=== PATIENT | male | born 1965 | race Caucasian/White ===

== ENCOUNTER 2017-07-11 07:44 | Day surgery (SDC) | payer BC ==
[2017-07-07 10:00] VITALS: BMI 33.9
[~2017-07-11 07:44] MED LIST: LACTATED RINGERS 1,000 ML IV SCH
[2017-07-11 08:10] VITALS: TEMP 97.6
[2017-07-11] MEDS ORDERED: LIDOCAINE 1% 20 ML VIAL (10MG/ML) FOR IV START INTRADERMA ONE (08:21)
[2017-07-11] MEDS ORDERED: LIDOCAINE 1% INJ 10MG/ML (20 ML MDV) ONE (08:56)
[2017-07-11] MEDS ORDERED: PROPOFOL 10 MG/ML 20 ML VIAL IV ONE (08:56)
--- NOTE | 2017-07-11 08:59 | P.GSHP ---
History of Present Illness H&P Date: 07/11/17 Chief Complaint: Screening colonoscopy This a 52-year-old male referred from Dr. Moncada. Patient presents today for screening colonoscopy. 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 ( 2010). SMOKED 2 PPD., SMOKED APPROX. 20 YRS . Past Drug Use History: None Reported - Past Family History Mother Family Medical History: Cancer Additional Family Medical History / Comment(s): FROM BREAST CANCER. Father Family Medical History: Cancer Additional Family Medical History / Comment(s): BLADDER CANCER Brother(s) Family Medical History: Cancer Additional Family Medical History / Comment(s): FROM CANCER. Medications and Allergies Home Medications Medication Instructions Recorded Confirmed Type Cholesterol Med 1 tab PO DAILY 07/07/17 07/11/17 History Lisinopril [Zestril] 10 mg PO DAILY 07/07/17 07/11/17 History Allergies Allergy/AdvReac Type Severity Reaction Status Date / Time bee venom protein (honey bee) Allergy Severe SEVERE Verified 07/11/17 08:03 SWELLING - HAS EPI PEN Surgical - Exam Vital Signs Temp Pulse Resp BP Pulse Ox 97.6 F 89 16 146/94 95 07/11/17 08:08 07/11/17 08:08 07/11/17 08:08 07/11/17 08:08 07/11/17 08:08 - General well developed, no distress - Eyes PERRL - ENT normal pinna - Neck no masses - Respiratory normal expansion - Cardiovascular Rhythm: regular - Abdomen Abdomen: soft, non tender Assessment and Plan Assessment: We'll perform screening colonoscopy.
--- NOTE | 2017-07-11 09:09 | P.OP ---
Date of Procedure: 07/11/17 Preoperative Diagnosis: Screening colonoscopy Postoperative Diagnosis: Normal colonoscopy Procedure(s) Performed: Colonoscopy Anesthesia: MAC Surgeon: Boris Patton Pathology: none sent Condition: stable Disposition: PACU Description of Procedure: N PROCEDURE: The patient was placed on the endoscopy table in the lateral position. Digital rectal examination was performed which revealed no abnormalities. The prostate was symmetrical without nodules. Flexible colonoscope was then placed in the patient's anus and passed throughout the entire colon. The ileocecal valve was visualized. The cecum, ascending, transverse, descending and sigmoid colon were normal. The rectum was normal as well. There were no masses, polyps or diverticula noted in the entire colon. SUMMARY OF FINDINGS: Normal colonoscopy.
[2017-07-11 09:22] VITALS: RESP 18
[2017-07-11 09:45] VITALS: BP 145/93; PULSE 73
== END 2017-07-11 09:50 | disposition home or self-care (01) ==
LOC: ORWHC2ENDO 07:44
PROVIDERS: ATTEND Surgery
DX: Z12.11 Encounter for screening for malignant neoplasm of colon (principal); E78.5 Hyperlipidemia, unspecified; I10 Essential (primary) hypertension; M19.90 Unspecified osteoarthritis, unspecified site; Z87.891 Personal history of nicotine dependence; Z79.899 Other long term (current) drug therapy; Z91.030 Bee allergy status
CPT/HCPCS: J2001; J2704; G0121

== ENCOUNTER 2018-05-24 09:52 | Inpatient (IN) | payer BC ==
[2018-05-24] MEDS ORDERED: DILTIAZEM DRIP BOLUS FROM BAG 1 MG SOLN IV ONE ×3 (10:20→16:57)
[2018-05-24] MEDS ORDERED: HEPARIN SODIUM,PORCINE 10,000 UNIT/ML 1 ML VIAL IV STA (10:20)
[2018-05-24] MEDS ORDERED: ASPIRIN 81 MG PO STA (10:20)
[2018-05-24] MEDS ORDERED: HEPARIN SOD,PORK IN 0.45% NACL 25,000 UNIT in 0.45% NACL 1 250ML.BAG IV SCH (10:30)
--- NOTE | 2018-05-24 10:43 | ED ---
Recheck HPI - General Chief Complaint: Recheck/Abnormal Lab/Rx Stated Complaint: abn EKG Time Seen by Provider: 05/24/18 10:00 Source: patient, RN notes reviewed Mode of arrival: ambulatory Limitations: no limitations - History of Present Illness Initial Comments: This is a 53-year-old male with a history of hyperlipidemia as well as hypertension no prior history of heart disease who was sent over from his doctor 's office for evaluation for appears be atrial fibrillation with rapid ventricular response. 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 He denies any palpitations chest pain fevers chills nausea vomiting sweats cough or other symptoms. He does notice today that his heart is beating faster. He denies any peripheral edema or overt weight gain. He states she's not been feeling his best for some period of time and he states his has noticed over the past 2 months that he does have exertional dyspnea when he doesn't even notice it. MD Complaint: other - Related Data Home Medications Medication Instructions Recorded Confirmed Lisinopril [Zestril] 10 mg PO DAILY 07/07/17 05/24/18 Atorvastatin Calcium [Lipitor] 40 mg PO QAM 05/24/18 05/24/18 Allergies Allergy/AdvReac Type Severity Reaction Status Date / Time bee venom protein (honey bee) Allergy Severe SEVERE Verified 05/24/18 10:38 SWELLING - HAS EPI PEN Review of Systems ROS Statement: Those systems with pertinent positive or pertinent negative responses have been documented in the HPI. ROS Other: All systems not noted in ROS Statement are negative. 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 Father Family Medical History: Cancer Additional Family Medical History / Comment(s): BLADDER CANCER Brother(s) Family Medical History: Cancer Additional Family Medical History / Comment(s): FROM CANCER. General Exam - General Exam Comments Initial Comments: This is a well-developed well-nourished awake alert oriented 3 male Limitations: no limitations General appearance: alert, anxious Head exam: Present: atraumatic, normocephalic, normal inspection Eye exam: Present: normal appearance, PERRL, EOMI. Absent: scleral icterus, conjunctival injection, periorbital swelling ENT exam: Present: normal exam, mucous membranes moist Neck exam: Present: normal inspection. Absent: tenderness, meningismus, lymphadenopathy Respiratory exam: Present: normal lung sounds bilaterally. Absent: respiratory distress, wheezes, rales, rhonchi, stridor Cardiovascular Exam: Present: tachycardia, irregular rhythm. Absent: systolic murmur, diastolic murmur, rubs, gallop, clicks GI/Abdominal exam: Present: soft, normal bowel sounds. Absent: distended, tenderness, guarding, rebound, rigid Extremities exam: Present: normal inspection, full ROM, normal capillary refill. Absent: tenderness, pedal edema, joint swelling, calf tenderness Back exam: Present: normal inspection Neurological exam: Present: alert, oriented X3, CN II-XII intact Psychiatric exam: Present: normal affect, normal mood Skin exam: Present: warm, dry, intact, normal color. Absent: rash Course Vital Signs 05/24/18 05/24/18 05/24/18 09:53 10:30 12:00 Temperature 97.5 F L Pulse Rate 94 161 H 146 H Respiratory 18 14 18 Rate Blood Pressure 177/89 173/132 143/130 O2 Sat by Pulse 97 98 99 Oximetry 05/24/18 12:30 Temperature Pulse Rate 165 H Respiratory 15 Rate Blood Pressure 164/134 O2 Sat by Pulse 98 Oximetry - Reevaluation(s) Reevaluation #1: 05/24/18 13:49 I did reevaluate the patient after initial treatment was given. He still remains in A. fib with RVR. Otherwise he is asymptomatic at this time. Medical Decision Making - Medical Decision Making I did reevaluate patient several more occasions. He is trending downward with respect to the heart rate. He still is otherwise asymptomatic. He will be admitted to discuss the case with Dr. Espino. Cardiology will be consulted. Patient has been anticoagulated. He is on Cardizem drip. - Lab Data Result diagrams: 05/24/18 10:37 05/24/18 10:37 Lab Results 05/24/18 05/24/18 05/24/18 Range/Units 10:37 10:37 10:37 WBC 8.2 (3.8-10.6) k/uL RBC 4.68 (4.30-5.90) m/uL Hgb 13.5 (13.0-17.5) gm/dL Hct 41.9 (39.0-53.0) % MCV 89.7 (80.0-100.0) fL MCH 28.9 (25.0-35.0) pg MCHC 32.3 (31.0-37.0) g/dL RDW 14.4 (11.5-15.5) % Plt Count 228 (150-450) k/uL Neutrophils % 73 % Lymphocytes % 16 % Monocytes % 5 % Eosinophils % 4 % Basophils % 1 % Neutrophils # 6.0 (1.3-7.7) k/uL Lymphocytes # 1.3 (1.0-4.8) k/uL Monocytes # 0.4 (0-1.0) k/uL Eosinophils # 0.3 (0-0.7) k/uL Basophils # 0.0 (0-0.2) k/uL PT (9.0-12.0) sec INR (<1.2) APTT (22.0-30.0) sec D-Dimer (<0.60) mg/L FEU Sodium 141 (137-145) mmol/L Potassium 4.5 (3.5-5.1) mmol/L Chloride 108 H (98-107) mmol/L Carbon Dioxide 26 (22-30) mmol/L Anion Gap 7 mmol/L BUN 13 (9-20) mg/dL Creatinine 0.80 (0.66-1.25) mg/dL Est GFR (CKD-EPI)AfAm >90 (>60 ml/min/1.73 sqM) Est GFR (CKD-EPI)NonAf >90 (>60 ml/min/1.73 sqM) Glucose 92 (74-99) mg/dL Calcium 9.4 (8.4-10.2) mg/dL Magnesium 1.7 (1.6-2.3) mg/dL Total Bilirubin 0.7 (0.2-1.3) mg/dL AST 31 (17-59) U/L ALT 32 (21-72) U/L Alkaline Phosphatase 83 (38-126) U/L Total Creatine Kinase 66 (55-170) U/L CK-MB (CK-2) 0.4 (0.0-2.4) ng/mL CK-MB (CK-2) Rel Index 0.6 Troponin I <0.012 (0.000-0.034) ng/mL Total Protein 6.9 (6.3-8.2) g/dL Albumin 4.0 (3.5-5.0) g/dL TSH 1.830 (0.465-4.680) mIU/L 05/24/18 Range/Units 10:37 WBC (3.8-10.6) k/uL RBC (4.30-5.90) m/uL Hgb (13.0-17.5) gm/dL Hct (39.0-53.0) % MCV (80.0-100.0) fL MCH (25.0-35.0) pg MCHC (31.0-37.0) g/dL RDW (11.5-15.5) % Plt Count (150-450) k/uL Neutrophils % % Lymphocytes % % Monocytes % % Eosinophils % % Basophils % % Neutrophils # (1.3-7.7) k/uL Lymphocytes # (1.0-4.8) k/uL Monocytes # (0-1.0) k/uL Eosinophils # (0-0.7) k/uL Basophils # (0-0.2) k/uL PT 9.6 (9.0-12.0) sec INR 0.9 (<1.2) APTT 23.6 (22.0-30.0) sec D-Dimer 0.77 H (<0.60) mg/L FEU Sodium (137-145) mmol/L Potassium (3.5-5.1) mmol/L Chloride (98-107) mmol/L Carbon Dioxide (22-30) mmol/L Anion Gap mmol/L BUN (9-20) mg/dL Creatinine (0.66-1.25) mg/dL Est GFR (CKD-EPI)AfAm (>60 ml/min/1.73 sqM) Est GFR (CKD-EPI)NonAf (>60 ml/min/1.73 sqM) Glucose (74-99) mg/dL Calcium (8.4-10.2) mg/dL Magnesium (1.6-2.3) mg/dL Total Bilirubin (0.2-1.3) mg/dL AST (17-59) U/L ALT (21-72) U/L Alkaline Phosphatase (38-126) U/L Total Creatine Kinase (55-170) U/L CK-MB (CK-2) (0.0-2.4) ng/mL CK-MB (CK-2) Rel Index Troponin I (0.000-0.034) ng/mL Total Protein (6.3-8.2) g/dL Albumin (3.5-5.0) g/dL TSH (0.465-4.680) mIU/L - EKG Data -: EKG Interpreted by Me (Atrial fibrillation with a rapid ventricular response rate the current rate) 05/24/18 11:04 EKG shows atrial fibrillation with rapid ventricular response rate of 174 QRS 70 QT since QTC to 58/439 compared with one submitted from the office today. No definite acute ST-T wave changes. - Radiology Data Radiology results: report reviewed (Imaging reviewed no acute findings no evidence of PE), image reviewed Critical Care Time Critical Care Time: Yes Critical Care Time: 39 minutes of critical care time which was initial presentation with history physical labs x-rays multiple reevaluation patient responsive therapy discuss with the admitting physician and with the patient regarding the findings. Admission orders and documentation of the above Disposition Clinical Impression: Rapid atrial fibrillation, Exertional dyspnea Disposition: ADMITTED IP TO THIS HOSP Condition: Serious Referrals: Valerie Moncada DO [Primary Care Provider] - 1-2 days
[2018-05-24] MEDS ORDERED: DILTIAZEM 50 MG in SODIUM CHLORIDE 0.9% 40 ML IV SCH (11:00)
[2018-05-24 11:07] LABS: Basophils % (A) 1 %; Eosinophils # (A) 0.3 k/uL (0-0.7); Eosinophils % (A) 4 %; HCT 41.9 % (39.0-53.0); HGB 13.5 gm/dL (13.0-17.5); INR 0.9 (<1.2); Lymphocytes # (A) 1.3 k/uL (1.0-4.8); Lymphocytes % (A) 16 %; MCH 28.9 pg (25.0-35.0); MCHC 32.3 g/dL (31.0-37.0); MCV 89.7 fL (80.0-100.0); Mean Platelet Volume 7.7; Monocytes # (A) 0.4 k/uL (0-1.0); Monocytes % (A) 5 %; Neutrophils % (A) 73 %; Partial Thromboplastin Time 23.6 sec (22.0-30.0); Platelet Count 228 k/uL (150-450); Prothrombin Time 9.6 sec (9.0-12.0); RBC 4.68 m/uL (4.30-5.90); RDW 14.4 % (11.5-15.5); WBC 8.2 k/uL (3.8-10.6)
[2018-05-24 11:10] LABS: ALT 32 U/L (21-72); AST 31 U/L (17-59); Alkaline Phosphatase 83 U/L (38-126); Anion Gap 7 mmol/L; Blood Urea Nitrogen 13 mg/dL (9-20); Calcium 9.4 mg/dL (8.4-10.2); Carbon Dioxide 26 mmol/L (22-30); Chloride 108 mmol/L (98-107); Glucose 92 mg/dL (74-99); Magnesium 1.7 mg/dL (1.6-2.3); Potassium 4.5 mmol/L (3.5-5.1); Sodium 141 mmol/L (137-145); Total Bilirubin 0.7 mg/dL (0.2-1.3); Total Protein 6.9 g/dL (6.3-8.2)
[2018-05-24 11:14] LABS: Creatine Kinase 66 U/L (55-170)
[2018-05-24] MEDS ORDERED: MAGNESIUM SULFATE-D5W PMX 1 GM in DEXTROSE/WATER 1 100ML.BAG IVPB ONE (11:20)
[2018-05-24 11:27] LABS: Creatine Kinase MB 0.4 ng/mL (0.0-2.4); Troponin I <0.012 ng/mL (0.000-0.034)
[2018-05-24 11:30] LABS: D-Dimer 0.77 mg/L FEU (<0.60)
--- NOTE | 2018-05-24 11:42 | XR ---
EXAMINATION TYPE: XR chest 2V DATE OF EXAM: 05/24/2018 COMPARISON: Prior x-ray 01/22/2013 HISTORY: Dysrhythmia TECHNIQUE: Frontal and lateral views of the chest are obtained. FINDINGS: There is no focal air space opacity, pleural effusion, or pneumothorax seen. The cardiac silhouette size is within normal limits. The osseous structures are intact. There are cardiac leads . Mild thickening of the minor fissure laterally. There is eventration of the right hemidiaphragm. Pr ominent lung volumes suggest underlying COPD, bullous changes may be present at the apices. IMPRESSION: No acute cardiopulmonary process.
--- NOTE | 2018-05-24 12:44 | CT ---
CT CHEST FOR PULMONARY EMBOLISM. EXAMINATION TYPE: CT angio chest DATE OF EXAM: 05/24/2018 INDICATION: SOB, elevated Ddimer CT DLP: 511.3 mGycm, Automated exposure control for dose reduction was used. CONTRAST: Patient injected with 78 mL of Isovue 370. COMPARISON: None TECHNIQUE: CT of the chest is performed on a spiral scan at 2 mm thick sections. Study is performed with intravenous contrast timed for evaluation for pulmonary embolism. This will limit additional po rtions of the evaluation. 3-D MIP images reconstructed by the technologist are reviewed on the compu ter in the coronal and sagittal planes. FINDINGS: No persistent filling defects are evident to suggest an acute pulmonary embolism. No mediastinal or hilar adenopathy enlarged by CT criteria is evident. The ascending aorta diameter at the level of the main pulmonary artery is 3.7 cm. The main pulmonary artery diameter at the bifur cation is 2.9 cm. Lung windows are clear. Emphysematous blebs and bulla are present in the upper lung beltran. Some area s of pneumonitis are within the right middle lobe upper portions. Limited CT section through the upper abdomen are unremarkable. IMPRESSIONS: 1. No acute pulmonary embolism. 2. Emphysematous changes.
[2018-05-24] MEDS ORDERED: NALOXONE 0.4 MG/ML 1 ML VIAL IV PRN (13:53)
[2018-05-24] MEDS: DILTIAZEM 50 MG in SODIUM CHLORIDE 0.9% 40 ML IV SCH ×3 (14:15→23:45)
[2018-05-24] MEDS ORDERED: ENALAPRILAT 1.25 MG/ML 1 ML VIAL IVP STA (14:24)
--- NOTE | 2018-05-24 14:39 | P.HPIM ---
History of Present Illness H&P Date: 05/24/18 Matthew Burden is a 53-year-old male patient of Dr. Valerie Moncada who presented to [facility] emergency room with a chief complaint of worsening shortness of breath, patient was found to have atrial fibrillation with rapid ventricular response, he was started on IV Cardizem drip, and IV heparin and was admitted to telemetry floor, cardiology consultation was initiated in the emergency room. Exact onset of atrial fibrillation is difficult to establish, patient stated that for several days he has been having worsening shortness of breath and some palpitation with activity, he has known history of COPD and has been using his inhalers for shortness of breath. Patient denies any previous history of atrial fibrillation, he states that he had cardiac catheterization 2 years ago at this hospital which showed normal coronary artery per patient no angioplasty or stent placement was done. Patient stated that he has previous history of hypertension and hyperlipidemia. He is on medication for that, he denies any history of diabetes, kidney disease or liver disease. Past surgical history significant for multiple ankle surgeries for injury, he had some skin lesion removed, otherwise he denies any surgical intervention in the past. 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 He used to smoke up to 2 packs per day he quit 7 years ago. He drinks 2 beers daily, and 6-8 alcoholic drinks on the weekends. He denies any marijuana or illicit drug use. 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 Father Family Medical History: Cancer Additional Family Medical History / Comment(s): BLADDER CANCER Brother(s) Family Medical History: Cancer Additional Family Medical History / Comment(s): FROM CANCER. Medications and Allergies Home Medications Medication Instructions Recorded Confirmed Type Lisinopril [Zestril] 10 mg PO DAILY 07/07/17 05/24/18 History Atorvastatin Calcium [Lipitor] 40 mg PO QAM 05/24/18 05/24/18 History Allergies Allergy/AdvReac Type Severity Reaction Status Date / Time bee venom protein (honey bee) Allergy Severe SEVERE Verified 05/24/18 10:38 SWELLING - HAS EPI PEN Physical Exam Vitals: Vital Signs Temp Pulse Resp BP Pulse Ox 05/24/18 14:00 144 H 18 139/118 99 05/24/18 13:30 71 19 127/101 99 05/24/18 13:00 149 H 18 131/101 99 05/24/18 12:30 165 H 15 164/134 98 05/24/18 12:00 146 H 18 143/130 99 05/24/18 10:30 161 H 14 173/132 98 05/24/18 09:53 97.5 F L 94 18 177/89 97 Intake and Output 05/23/18 05/24/18 05/24/18 22:59 06:59 14:59 Intake Total 5.75 Balance 5.75 Intake: Intake, IV Titration 5.75 Amount Diltiazem 50 mg In Sodium 5.75 Chloride 0.9% 40 ml @ 5 MG/HR 5 mls/hr IV .Q10H [facility] Rx#:[id number] Other: Weight 99.79 kg In general patient is alert and oriented 3 in no apparent distress HEENT head normocephalic and atraumatic Neck is supple no JVD no goiter no lymphadenopathy no carotid bruit Chest exam reveals a few scattered rhonchi no wheezing Cardiac exam reveals irregular heart sounds S1 and S2 no gallops no murmurs Abdomen is soft nontender no organomegaly with normal bowel sounds Extremity exam reveals no edema no cyanosis or clubbing Neurological examination reveals no gross focal deficit Results CBC & Chem 7: 05/24/18 10:37 05/24/18 10:37 Labs: Abnormal Lab Results - Last 24 Hours (Table) 05/24/18 05/24/18 Range/Units 10:37 10:37 D-Dimer 0.77 H (<0.60) mg/L FEU Chloride 108 H (98-107) mmol/L Assessment and Plan Plan: #1 atrial fibrillation with rapid ventricular response #2 hypertension well-controlled on current medications #3 underlying history of hyperlipidemia #4 history of cardiac catheterization 2 years ago with normal coronary artery per patient #5 history of COPD #6 daily alcohol use #7 mildly elevated d-dimer at 0.[address] angiogram of the chest At this time patient will be admitted to telemetry floor he is on IV Cardizem and IV heparin cardiology consultation is requested cattle manager to assess insurance coverage for oral anticoagulation Will follow closely
[2018-05-24] MEDS ORDERED: DEXTROSE 5% IN WATER 100 ML with AMIODARONE 150 MG IV ONE (15:20)
[2018-05-24] MEDS ORDERED: AMIODARONE 450 MG in DEXTROSE 5% IN WATER 250 ML IV SCH ×2 (15:30)
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
[2018-05-24] MEDS ORDERED: METOPROLOL TARTRATE 50 MG TAB PO STA (15:41)
[2018-05-24] MEDS: METOPROLOL TARTRATE 50 MG TAB PO SCH (23:44)
[2018-05-25] MEDS: DILTIAZEM 50 MG in SODIUM CHLORIDE 0.9% 40 ML IV SCH ×2 (06:30→09:27)
[2018-05-25 08:23] VITALS: BP 126/80
--- NOTE | 2018-05-25 08:26 | PN ---
PROGRESS NOTE Mr. Burden is a 53-year-old male who presented yesterday with atrial fibrillation, rapid ventricular response. He is back in sinus mechanism at this time. He is feeling well. He is denying any symptoms of chest pain. He denies any dizziness or palpitation. He denies any nausea. His medications at this time include IV heparin as well as metoprolol tartrate 50 mg twice a day, lisinopril 10 mg daily and Lipitor 40 mg daily. He is off the IV Cardizem drip. PHYSICAL EXAMINATION: Blood pressure 128/80 with the heart rate in the 60s. LUNGS: Clear. HEART: Regular rate and rhythm. S1, S2. No S3. No rub. ABDOMEN: Soft, nontender. EXTREMITIES: No edema. LAB DATA: Lab data revealed a troponin less than 0.012. His TSH is 1.8. IMPRESSION: 1. Paroxysmal atrial fibrillation. Patient is back in sinus mechanism. 2. History of hypertension. 3. Hyperlipidemia. 4. Chronic EtOH intake. RECOMMENDATION: I have discussed with the patient the importance of alcohol and tobacco cessation. I will stop his IV heparin and start Xarelto. I will obtain an echocardiogram with Doppler. Increase his level activity. If he remains stable, he may be able to be discharged home today and followed as an outpatient. MMODL / IJN: [id number] /
[2018-05-25] MEDS: METOPROLOL TARTRATE 50 MG TAB PO SCH (08:55)
[2018-05-25] MEDS ORDERED: ATORVASTATIN 40 MG TAB PO SCH (09:00)
[2018-05-25] MEDS ORDERED: LISINOPRIL 10 MG TAB PO SCH (09:00)
[2018-05-25] MEDS ORDERED: RIVAROXABAN 20 MG TAB PO STA (09:19)
--- NOTE | 2018-05-25 10:54 | ECHOF ---
Referral Reason:afib MEASUREMENTS -------- HEIGHT: 167.6 cm WEIGHT: 99.8 kg BP: RVIDd: 3.1 cm (< 3.3) IVSd: 1.2 cm (0.6 - 1.1) LVIDd: 4.5 cm (3.9 - 5.3) LVPWd: 1.3 cm (0.6 - 1.1) IVSs: 1.9 cm LVIDs: 2.4 cm LVPWs: 2.0 cm LAESV Index (A-L): 37.16 ml/m Ao Diam: 3.2 cm (2.0 - 3.7) AV Cusp: 2.1 cm (1.5 - 2.6) LA Diam: 3.8 cm (2.7 - 3.8) MV EXCURSION: 23.080 mm (> 18.000) MV EF SLOPE: 171 mm/s (70 - 150) EPSS: 0.7 cm MV E Ferdinand: 1.16 m/s MV DecT: 178 ms MV A Ferdinand: 0.65 m/s MV E/A Ratio: 1.77 RAP: 5.00 mmHg RVSP: 33.76 mmHg FINDINGS -------- Sinus rhythm. This was a technically good study. The left ventricular size is normal. There is mild concentric left ventricular hypertrophy. Overa ll left ventricular systolic function is normal with, an EF between 55 - 60 %. The right ventricle is normal in size. LA is moderately dilated 34-39 ml/m2 The right atrium is normal in size. The aortic valve is trileaflet and appears structurally normal. Mild mitral regurgitation is present. [id number] tricuspid regurgitation present. The right ventricular systolic pressure, as measu red by Doppler, is 33.76mmHg. Pulmonic valve appears structurally normal. The aortic root size is normal. Normal inferior vena cava with normal inspiratory collapse consistent with estimated right atrial pre ssure of 5 mmHg. The pericardium is normal. CONCLUSIONS -------- 1. Sinus rhythm. 2. This was a technically good study. 3. The left ventricular size is normal. 4. There is mild concentric left ventricular hypertrophy. 5. Overall left ventricular systolic function is normal with, an EF between 55 - 60 %. 6. The right ventricle is normal in size. 7. LA is moderately dilated 34-39 ml/m2 8. The right atrium is normal in size. 9. The aortic valve is trileaflet and appears structurally normal. 10. Mild mitral regurgitation is present. 11. [id number] tricuspid regurgitation present. 12. The right ventricular systolic pressure, as measured by Doppler, is 33.76mmHg. 13. Pulmonic valve appears structurally normal. 14. The aortic root size is normal. 15. Normal inferior vena cava with normal inspiratory collapse consistent with estimated right atrial pressure of 5 mmHg. 16. The pericardium is normal. ADMEASURER: Yris Brenner RDCS
[2018-05-25] MEDS ORDERED: SYMBICORT 160-4.5 MCG INHALER INHALATION STA (12:50)
--- NOTE | 2018-05-25 12:50 | P.DS ---
Providers Date of admission: 05/24/18 13:53 Expected date of discharge: 05/25/18 Attending physician: Murray Espino Consults: 05/24/18 13:54 Consult Physician Routine Consulting Provider: Stewart Ibarra Consult Reason/Comments: Rapid atrial fibrillation Do you want consulting provider notified?: Yes Primary care physician: Valerie Moncada [facility] Course: Discharge diagnosis #1 atrial fibrillation with rapid ventricular response #2 hypertension well-controlled on current medications #3 underlying history of hyperlipidemia #4 history of cardiac catheterization 2 years ago with normal coronary artery per patient #5 history of COPD #6 daily alcohol use #7 mildly elevated d-dimer at 0.[address] angiogram of the chest Hospital course Matthew Burden is a 53-year-old male patient of Dr. Valerie Moncada who presented to [facility] emergency room with a chief complaint of worsening shortness of breath, patient was found to have atrial fibrillation with rapid ventricular response, he was started on IV Cardizem drip, and IV heparin and was admitted to telemetry floor, cardiology consultation was initiated in the emergency room. Exact onset of atrial fibrillation is difficult to establish, patient stated that for several days he has been having worsening shortness of breath and some palpitation with activity, he has known history of COPD and has been using his inhalers for shortness of breath. Patient denies any previous history of atrial fibrillation, he states that he had cardiac catheterization 2 years ago at this hospital which showed normal coronary artery per patient no angioplasty or stent placement was done. Patient stated that he has previous history of hypertension and hyperlipidemia. He is on medication for that, he denies any history of diabetes, kidney disease or liver disease. Past surgical history significant for multiple ankle surgeries for injury, he had some skin lesion removed, otherwise he denies any surgical intervention in the past. 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 He used to smoke up to 2 packs per day he quit 7 years ago. He drinks 2 beers daily, and 6-8 alcoholic drinks on the weekends. He denies any marijuana or illicit drug use. Family history significant for father with coronary artery disease and quadruple bypass surgery at an early age, otherwise no significant history could be obtained 05/25/2018 patient presented with atrial fibrillation with rapid ventricular response has converted to normal sinus rhythm. He was switched over to metoprolol initially given Cardizem in the ER. And he'll be started on Xarelto for anticoagulation. Patient has converted to normal sinus rhythm. Cardiology has cleared him for discharge. Echo showed an EF of 55-60% with mild to moderate tricuspid regurgitation. The Xarelto was attended co-pay and he also received the coupon here at Hospital. Patient does report a history of COPD and uses his inhalers at home. He will continue those as well. Apparently this morning he was slightly short of breath and this is likely related to not having his inhaler this will be restarted. Patient is not requiring any oxygen. Patient is medically stable for discharge we'll follow-up with Dr. Moncada in [address] Eng in 2 weeks. I performed an examination of the patient and discussed their management with the physician Tugboat Operator. I have reviewed the Physician Tugboat Operator's notes and agree with the documented findings and plan of care Patient Condition at Discharge: Stable Plan - Discharge Summary Discharge Rx Participant: No New Discharge Prescriptions: New Metoprolol Tartrate [Lopressor] 50 mg PO BID #60 tab Rivaroxaban [Xarelto] 20 mg PO W/SUPPER #30 tab Continue Lisinopril [Zestril] 10 mg PO DAILY Atorvastatin Calcium [Lipitor] 40 mg PO QAM Discharge Medication List Lisinopril [Zestril] 10 mg PO DAILY 07/07/17 [History] Atorvastatin Calcium [Lipitor] 40 mg PO QAM 05/24/18 [History] Metoprolol Tartrate [Lopressor] 50 mg PO BID #60 tab 05/25/18 [Rx] Rivaroxaban [Xarelto] 20 mg PO W/SUPPER #30 tab 05/25/18 [Rx] Follow up Appointment(s)/Referral(s): Kj Eng MD [STAFF PHYSICIAN] - 2 Weeks Valerie Moncada DO [Primary Care Provider] - 1 Week Activity/Diet/Wound Care/Special Instructions: pt has free day supply of xarelto filled in [facility]. pt given a $ 10/mo coupon for further coverage. Diet: cardiac Activity: as tolerated No ETOH Discharge Disposition: HOME SELF-CARE
[2018-05-25 13:10] VITALS: PULSE 65; RESP 16; TEMP 98
[2018-05-25] MEDS ORDERED: RIVAROXABAN 20 MG TAB PO SCH (17:30)
[2018-05-25] MEDS ORDERED: SYMBICORT 160-4.5 MCG INHALER INHALATION SCH (20:00)
[2018-05-26] MEDS ORDERED: RIVAROXABAN 20 MG TAB PO SCH (17:30)
== END 2018-05-25 14:27 | disposition home or self-care (01) | DRG 310 ==
LOC: EC 09:52 → 3SCARD 13:53
PROVIDERS: ADMIT Internal Medicine; ATTEND Internal Medicine
DX: I48.0 Paroxysmal atrial fibrillation (principal); E78.5 Hyperlipidemia, unspecified; I07.1 Rheumatic tricuspid insufficiency; I10 Essential (primary) hypertension; J44.9 Chronic obstructive pulmonary disease, unspecified; M19.90 Unspecified osteoarthritis, unspecified site; R79.1 Abnormal coagulation profile; Z72.89 Other problems related to lifestyle; Z79.899 Other long term (current) drug therapy; Z87.891 Personal history of nicotine dependence; Z91.030 Bee allergy status; Z80.3 Family history of malignant neoplasm of breast; Z80.52 Family history of malignant neoplasm of bladder
CPT/HCPCS: 36415; 71046; 71275; 80053; 82550; 82553; 83735; 84443; 84484; 85025; 85379; 85610; 85730; 93005; 93306; 96365; 96366; 96368; 96375; 96376; 99291

== ENCOUNTER → 2018-05-26 | Outpatient (CLI) | payer BC | END | disposition home or self-care (01) | LOC: RADMRIMAIN 07:51 | PROVIDERS: ATTEND Family Medicine | DX: Z53.9 Procedure and treatment not carried out, unspecified reason (principal) ==

== ENCOUNTER → 2018-05-31 | Outpatient (CLI) | payer BC ==
--- NOTE | 2018-05-31 08:51 | MR ---
EXAMINATION TYPE: MR brain wo/w con DATE OF EXAM: 05/31/2018 COMPARISON: NONE HISTORY: Headache TECHNIQUE: Multiplanar, multisequence images of the brain and brainstem is performed without and with IV contras t, utilizing 10 mL intravenous Gadavist . The exam is limited secondary to patient motion. Fast marlee col performed insufflation was claustrophobic. FINDINGS: Diffusion weighted images demonstrate no evidence of a recent infarct or other diffusion ab normality. There is no extra-axial fluid collection. There are a few scattered foci of T2/FLAIR hype rintensity within the periventricular and subcortical white matter. Mild hyperintensity is seen withi n the periatrial white matter surrounding the ventricles. The ventricular system and cisternal spaces are normal in size and appearance. The brain volume is age appropriate. Midline structures demonstrate normal morphology. The craniocervical junction appears within normal limits. Post contrast images demonstrate no abnormal enhancement. The dural venous sinuses appear pa tent. The globes are intact. Mild mucosal thickening is seen within the maxillary sinuses and moderat e within the ethmoid sinuses. Scant mucosal thickening is present within the frontal sinuses. There i s a small amount of fluid within the right mastoid air cells. Left mastoid air cells are well aerated . IMPRESSION: 1. Exam is somewhat limited given patient motion. However there is no evidence of acute infarct, midl ine shift or mass effect. No abnormal intracranial enhancement. 2. Moderate pansinusitis. 3. Mild burden nonspecific white matter change, most commonly on the basis of chronic microangiopathy .
== END | disposition home or self-care (01) ==
LOC: RADMRIMAIN 06:43
PROVIDERS: ATTEND Family Medicine
DX: R90.89 Other abnormal findings on diagnostic imaging of central nervous system (principal); I73.9 Peripheral vascular disease, unspecified; R51 Headache
CPT/HCPCS: 70553; A9585

== ENCOUNTER 2018-09-14 11:31 | Day surgery (SDC) | payer BC ==
[2018-09-14] MEDS: SODIUM CHLORIDE 0.9% 1,000 ML IV SCH (11:50)
[2018-09-14 12:09] LABS: Basophils % (A) 0 %; Eosinophils # (A) 0.2 k/uL (0-0.7); Eosinophils % (A) 3 %; HCT 41.6 % (39.0-53.0); HGB 13.7 gm/dL (13.0-17.5); Lymphocytes # (A) 1.3 k/uL (1.0-4.8); Lymphocytes % (A) 19 %; MCHC 32.9 g/dL (31.0-37.0); MCV 88.2 fL (80.0-100.0); Mean Platelet Volume 7.4; Monocytes # (A) 0.4 k/uL (0-1.0); Monocytes % (A) 6 %; Neutrophils # (A) 4.9 k/uL (1.3-7.7); Neutrophils % (A) 71 %; Platelet Count 247 k/uL (150-450); RBC 4.71 m/uL (4.30-5.90); RDW 14.8 % (11.5-15.5); WBC 6.9 k/uL (3.8-10.6)
[2018-09-14 13:14] LABS: Anion Gap 9 mmol/L; Blood Urea Nitrogen 15 mg/dL (9-20); Calcium 9.4 mg/dL (8.4-10.2); Carbon Dioxide 24 mmol/L (22-30); Chloride 105 mmol/L (98-107); Glucose 115 mg/dL (74-99); Potassium 4.9 mmol/L (3.5-5.1); Sodium 138 mmol/L (137-145)
[2018-09-14] MEDS ORDERED: HEPARIN SODIUM 1,000 UN/ML (10ML VL) ONE (16:26)
[2018-09-14] MEDS ORDERED: LIDOCAINE 1% INJ 10MG/ML (20 ML MDV) ONE (16:38)
[2018-09-14] MEDS ORDERED: HEPARIN SODIUM,PORCINE 10,000 UNIT/ML 1 ML VIAL ONE (16:38)
[2018-09-14] MEDS ORDERED: fentaNYL (PF) 50 MCG/ML 2 ML AMP ONE (16:38)
[2018-09-14] MEDS ORDERED: SUCCINYLCHOLINE CHLORIDE 100 MG/5 ML SYR IV ONE (16:38)
[2018-09-14] MEDS ORDERED: PROTAMINE SULFATE 10 MG/ML 25 ML VIAL IV ONE (16:38)
[2018-09-14] MEDS ORDERED: PHENYLEPHRINE-0.9% NACL SYG 1 MG/10 ML SYRINGE ONE (16:38)
[2018-09-14] MEDS ORDERED: MIDAZOLAM 2 MG/2 ML VIAL ONE (16:38)
[2018-09-14] MEDS ORDERED: PROPOFOL 10 MG/ML 20 ML VIAL IV ONE (16:38)
[2018-09-14] MEDS ORDERED: LIDOCAINE 1% INJ 10MG/ML (20 ML MDV) SQ ONE (17:16)
[2018-09-14] MEDS ORDERED: HEPARIN SOD,PORK IN 0.45% NACL 25,000 UNIT in 0.45% NACL 1 250ML.BAG IV ONE (17:24)
[2018-09-14] MEDS ORDERED: IOPAMIDOL-370 50ML BTL INJ ONE (18:52)
--- NOTE | 2018-09-14 19:35 | P.PCN ---
Preoperative Diagnosis: Diagnosis Atrial fibrillation, symptomatic, refractory to therapy, paroxysmal Result Successful pulmonary vein isolation of all veins using cryo-ablation Complete entrance block in all 4 veins confirmed Phrenic nerve paresis, right inferior pulmonary vein, complete recovery, total cryo duration of 109 seconds only. Vein was completely isolated Esophageal deflection YES Electrical cardioversion with a synchronized shock across the chest YES Patient was in atrial fibrillation. Electrical cardioversion was performed at the end of the procedure Procedure details Patient was brought to the EP lab in a fasting state. Written informed consent was obtained prior to the procedure. Procedure performed under general anesthesia After initial muscle relaxant use, muscle relaxants were not given thereafter in order to assess phrenic nerve during procedure. Patient prepped and draped as per protocol Full cryo-set up with standard preparation of the cryoablation tools done. Femoral Venous access obtained on the right and left groins Venous and arterial Sheaths placed. Diagnostic catheters for the high right atrium, phrenic nerve stimulation and pacing, His bundle, RV and coronary sinus placed Intracardiac echo catheter placed. Long sheath placed in the right atrium Left and right transseptal catheterization performed under intracardiac echo guidance. Intravenous heparin with aCT above 300 Later, catheter positioning and balloon positioning in the left atrium, under intracardiac echo guidance Diagnostic EP study with Coronary sinus pacing and recording Baseline measurements Sinus cycle length 786 ms, SC interval 180 ms, QRS 84 ms, QT 382 ms AH 71 and HV 35 ms Atrial pacing performed from the high right atrium and the coronary sinus RV pacing Sinus recovery times at 600 ms was 973 ms AV node Wenckebach block 320 ms VA Wenckebach block 460 ms Transseptal catheterization performed RA pressure //12 LA pressure //14 Transseptal catheterization performed with standard sheath. The cryoablation sheath was then placed with an over the wire exchange without any acute complications. All 4 pulmonary veins were isolated in the following sequence: Left superior followed by left inferior followed by right superior followed by right inferior The cryo-ablation balloon was placed at the os of each vein 1.5 mL of IV dye was injected to confirm an occluded vein Goal during cryoablation was to achieve complete occlusion of the pulmonary vein, achieve -30 degrees C at 30 seconds and achieve -40 degrees C at 60 seconds and a time to effect of less than 60-90 seconds, . If not the balloon was repositioned to obtain this result After completion of Cryoblation with durations from 180-240 seconds, entrance block was confirmed with the Attain circular catheter in a roving fashion around the antrum of the pulmonary veins Phrenic nerve pacing was performed from the SVC, right innominate vein area and diaphragm voltage was monitored. Diaphragmatic contractions were also monitored manually for strength of contraction. Parameter goals for each cryo freeze Complete occlusion of the appropriate vein -30 degrees C by 30 seconds -40 degrees C by 60 seconds Minimum between minus 40-55 degrees C Thaw time greater than 10 seconds Balloon visualized by intracardiac echo The esophagus was intubated. Esophageal Temperature monitoring with a CIRCA catheter formed. Esophageal deflection for hypothermia of the esophagus below 30 degrees C Left superior pulmonary vein Complete isolation, entrance block Left inferior pulmonary vein Complete isolation, entrance block Right superior pulmonary vein, during phrenic nerve pacing Complete isolation, entrance block Right inferior pulmonary vein, during phrenic nerve pacing Complete isolation, entrance block but only 109 seconds of application on account of phrenic nerve paresis Complete recovery thereafter of phrenic nerve At the end of the procedure the Achieve catheter was once again used to check for entrance block Phrenic nerve stimulation was performed to confirm diaphragmatic stimulation the end of the procedure Cine fluoroscopy was performed at the very end of the procedure to confirm movement of both diaphragms with inspiration and expiration At the end of the procedure the patient was extubated Heparin was reversed Venous sheaths were removed and hemostasis assured Procedures performed (PVI - CRYO Ablation) Diagnostic EP study CS pacing and recording Left and right transseptal catheterization Catheter the mapping of the tachycardia (NOT 3D mapping) Intracardiac echocardiography Pulmonary vein isolation with transseptal and comprehensive EPS, [id number] Electrical cardioversion with a synchronized shock across the chest [id number]
--- NOTE | 2018-09-14 19:38 | P.PRLE ---
RE: Matthew Burden Dear Valerie Simpson underwent cryoablation of the pulmonary veins for management of atrial fibrillation I have urged him to proceed with a sleep apnea assessment study in view of his history of atrial fibrillation He will continue to follow with you and Dr. Eng as before Thank you for entrusting me with the care of the patient Warm regards Sincerely Stewart Ibarra
[2018-09-14 20:00] VITALS: RESP 16
[2018-09-14] MEDS ORDERED: ACETAMINOPHEN IV (For NPO) 1,000 MG in EMPTY BAG 1 BAG IVPB ONE (20:00)
[2018-09-14] MEDS: HYDROcodone/APAP 5-325MG 1 EACH TAB PO PRN (21:31)
[2018-09-14] MEDS: METOPROLOL TARTRATE 50 MG TAB PO SCH (21:31)
[2018-09-14 23:18] VITALS: BMI 33.2
[2018-09-15] MEDS: FLECAINIDE 50 MG TAB PO SCH ×3 (02:10→20:42)
[2018-09-15] MEDS: ACETAMINOPHEN TAB 325 MG TAB PO PRN ×2 (06:39→15:58)
--- NOTE | 2018-09-15 07:52 | P.DS ---
Providers Attending physician: Stewart Ibarra Primary care physician: Valerie [facility] Course: Calvin Martinez is doing well. He does have sore throat but no chest discomfort no dizziness lightheadedness or palpitations. 12-lead ECG is normal. Telemetry does not show any arrhythmias History he underwent cryoablation of all 4 pulmonary veins All veins are completely isolated but it was transient phrenic nerve paresis been ablating the right inferior pulmonary vein. 2 attempts were made both on board attempts phrenic nerve paresis. Within 60 seconds. The total duration of 109 seconds cryoablation was performed in the right inferior pulmonary vein with isolation of the vein All other veins are completely isolated Is doing well today vitals are stable Blood pressure 130/72 mmHg pulse rate in the 70s he is afebrile 98.7F Normal heart sounds S1 and S2 are normal Breath sounds are clear no rhonchi no crackles 70s warm no edema Groins of healed well Impression Persistent atrial fibrillation Appropriately anticoagulated Successful isolation of all 4 pulmonary veins for the duration of cryoablation in the right inferior pulmonary vein was only 109 seconds on account of development of phrenic nerve paresis Phrenic nerve resolved completely within minutes of termination of cryoablation Plan Continue current medications including and granulation flecainide and follow-up with Dr. Eng and alondra within 1-2 weeks If he develops recurrent atrial fibrillation then EP study and radiofrequency ablation will have to be performed He may also have an additional atrial tachycardia/atrial flutter Plan - Discharge Summary Discharge Rx Participant: Yes New Discharge Prescriptions: Continue Lisinopril [Zestril] 10 mg PO DAILY Atorvastatin Calcium [Lipitor] 40 mg PO QAM Metoprolol Tartrate [Lopressor] 50 mg PO BID #60 tab Flecainide [Tambocor] 50 mg PO Q12HR Edoxaban Tosylate [Savaysa] 60 mg PO DAILY Discharge Medication List Lisinopril [Zestril] 10 mg PO DAILY 07/07/17 [History] Atorvastatin Calcium [Lipitor] 40 mg PO QAM 05/24/18 [History] Metoprolol Tartrate [Lopressor] 50 mg PO BID #60 tab 05/25/18 [Rx] Edoxaban Tosylate [Savaysa] 60 mg PO DAILY 09/12/18 [History] Flecainide [Tambocor] 50 mg PO Q12HR 09/12/18 [History] Follow up Appointment(s)/Referral(s): Kj Eng MD [STAFF PHYSICIAN] - 1 Week (Follow Dr. Eng/alondra within 1-2 weeks) Activity/Diet/Wound Care/Special Instructions: Post EP study - Ablation instructions 1. Keep access sites dry for 2 days. 2. No heavy lifting or straining for 2 days. 3. Avoid bending the hips repeatedly for 2 days. 4. You may go up and down stairs slowly Call if the following is noted 1. Bleeding, increasing swelling or pain at the access sites. 2. Increasing chest discomfort, especially upon taking a deep breath. 3. Increasing shortness of breath, at rest or with exertion. 4. Undue cough / phlegm 5. Difficulty or pain while swallowing. 6. Pain or change in color in the extremities. 7. Fever, chills, rigors. 8. Increasing headache or neurologic symptoms. 9. Dizziness, fainting, palpitations
[2018-09-15] MEDS: LISINOPRIL 10 MG TAB PO SCH (08:19)
[2018-09-15] MEDS: METOPROLOL TARTRATE 50 MG TAB PO SCH ×2 (08:19→20:42)
[2018-09-15] MEDS: EDOXABAN TOSYLATE 60 MG TABLET PO SCH (08:19)
[2018-09-15] MEDS: ATORVASTATIN 40 MG TAB PO SCH (08:22)
[2018-09-15] MEDS: HYDROcodone/APAP 5-325MG 1 EACH TAB PO PRN (11:41)
[2018-09-15] MEDS ORDERED: ONDANSETRON 4 MG/2 ML VIAL IVP PRN (16:33)
[2018-09-15] MEDS: IBUPROFEN 400 MG TAB PO PRN (16:52)
--- NOTE | 2018-09-15 17:14 | CT ---
EXAMINATION TYPE: CT brain wo con DATE OF EXAM: 09/15/2018 COMPARISON: None HISTORY: Headache and lightheadedness. CT DLP: 1087.4 mGycm Automated exposure control for dose reduction was used. FINDINGS: There is cerebral cortical atrophy. There is no mass effect nor midline shift. There is no sign of in tracranial hemorrhage. The calvarium is intact. IMPRESSION: MILD ATROPHY. NO ACUTE INTRACRANIAL ABNORMALITY.
[2018-09-16] MEDS: IBUPROFEN 400 MG TAB PO PRN (06:09)
[2018-09-16] MEDS: SODIUM CHLORIDE 0.9% 1,000 ML IV SCH (07:35)
[2018-09-16 08:13] VITALS: BP 104/71; PULSE 73; TEMP 98.4
[2018-09-16] MEDS: LISINOPRIL 10 MG TAB PO SCH (09:22)
[2018-09-16] MEDS: EDOXABAN TOSYLATE 60 MG TABLET PO SCH (09:22)
[2018-09-16] MEDS: METOPROLOL TARTRATE 50 MG TAB PO SCH (09:22)
[2018-09-16] MEDS: ATORVASTATIN 40 MG TAB PO SCH (09:22)
--- NOTE | 2018-09-16 09:53 | P.DS ---
Providers Attending physician: Stewart Ibarra Primary care physician: Valerie [facility] Course: Patient was scheduled to be discharged yesterday but in the evening he started experiencing a lot of headache and vomiting and therefore his discharge was held. CT of the brain did not show any intracranial hemorrhage This morning he is doing well. His headache is a lot better now almost gone. He thinks he is ready to go home. He does not seem to be in any distress breathing is normal no chest discomfort minimal sore throat No dizziness lightheadedness no diplopia Breath sounds are clear no rhonchi no crackles Heart sounds are normal no murmurs or gallops or rub Abdomen soft Extent is warm no edema Groins of healed well There is no hematoma or swelling minimal tenderness noted Blood pressure 104/71 mmHg pulse rate in the 60s and 70s respirations normal afebrile 98.4F Impression paroxysmal atrial fibrillation status post cryoablation pulmonary veins Plan Continue Savaysa continue flecainide continue all medications at discharge home today in follow-up of Dr. Eng as previously scheduled within 1-2 weeks Plan - Discharge Summary Discharge Rx Participant: Yes New Discharge Prescriptions: Continue Lisinopril [Zestril] 10 mg PO DAILY Atorvastatin Calcium [Lipitor] 40 mg PO QAM Metoprolol Tartrate [Lopressor] 50 mg PO BID #60 tab Flecainide [Tambocor] 50 mg PO Q12HR Edoxaban Tosylate [Savaysa] 60 mg PO DAILY Discharge Medication List Lisinopril [Zestril] 10 mg PO DAILY 07/07/17 [History] Atorvastatin Calcium [Lipitor] 40 mg PO QAM 05/24/18 [History] Metoprolol Tartrate [Lopressor] 50 mg PO BID #60 tab 05/25/18 [Rx] Edoxaban Tosylate [Savaysa] 60 mg PO DAILY 09/12/18 [History] Flecainide [Tambocor] 50 mg PO Q12HR 09/12/18 [History] Follow up Appointment(s)/Referral(s): Kj Eng MD [STAFF PHYSICIAN] - 1 Week (Office will call you) Patient Instructions/Handouts: Electrophysiology Study (DC) Activity/Diet/Wound Care/Special Instructions: Post EP study - Ablation instructions 1. Keep access sites dry for 2 days. 2. No heavy lifting or straining for 2 days. 3. Avoid bending the hips repeatedly for 2 days. 4. You may go up and down stairs slowly Call if the following is noted 1. Bleeding, increasing swelling or pain at the access sites. 2. Increasing chest discomfort, especially upon taking a deep breath. 3. Increasing shortness of breath, at rest or with exertion. 4. Undue cough / phlegm 5. Difficulty or pain while swallowing. 6. Pain or change in color in the extremities. 7. Fever, chills, rigors. 8. Increasing headache or neurologic symptoms. 9. Dizziness, fainting, palpitations Patient may to be discharged home at 5 PM if hemodynamically is stable. Groin sutures to be removed
== END 2018-09-16 10:20 | disposition home or self-care (01) ==
LOC: CATHEP 11:31 → 1SOBS 19:10 → CATHEP 09-16 10:20
PROVIDERS: ATTEND Internal Medicine Clinical Cardiac Electrophysiology
DX: I48.0 Paroxysmal atrial fibrillation (principal); I49.5 Sick sinus syndrome; I10 Essential (primary) hypertension; E78.2 Mixed hyperlipidemia; E66.9 Obesity, unspecified; Z68.34 Body mass index [BMI] 34.0-34.9, adult; Z87.891 Personal history of nicotine dependence; Z79.02 Long term (current) use of antithrombotics/antiplatelets; Z79.899 Other long term (current) drug therapy; Z82.49 Family history of ischemic heart disease and other diseases of the circulatory system
CPT/HCPCS: 92960; 93662; 93609; 93656; 85347; 80048; 85025; 70450; C1769 ×5; C1894 ×2; C1730 ×2; C1759; C1893; C1733; C1766; J2720; J2250; J1644 ×2; J2405; J2001; J3010; J2370; J0330; J2704; Q9967

== ENCOUNTER 2018-10-15 11:04 | Inpatient (IN) | payer BC ==
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
--- NOTE | 2018-10-15 13:03 | US ---
EXAMINATION TYPE: US lower ext pseudo artery RT DATE OF EXAM: 10/15/2018 COMPARISON: NONE CLINICAL HISTORY: PAIN. Cardiac ablation 3 weeks ago in right groin, patient having hard time walking with groin pain and burning EXAM PERFORMED: Grayscale and color Doppler duplex imaging performed of the groin, post cardiac david ter to assess for pseudoaneurysm. SIDE PERFORMED: right Color and Waveform Doppler performed to assess for the presence of pseudoaneurysm; Is there ultrasound evidence of a pseudoaneurysm: no Is there evidence of AV shunting: no Is there a fluid collection present: no IMPRESSION: NO EVIDENCE OF A PSEUDOANEURYSM AT THIS TIME.
[2018-10-15] MEDS ORDERED: SODIUM CHLORIDE 0.9% 1,000 ML IV STA (13:54)
[2018-10-15] MEDS: METOPROLOL TARTRATE 5 MG/5 ML VIAL IVP SCH ×2 (14:28→20:44)
[2018-10-15 14:29] LABS: Anisocytosis Slight; Basophils # (A) 0.1 k/uL (0-0.2); Basophils % (A) 1 %; Eosinophils # (A) 0.2 k/uL (0-0.7); Eosinophils % (A) 2 %; HCT 43.9 % (39.0-53.0); HGB 14.5 gm/dL (13.0-17.5); Lymphocytes # (A) 1.8 k/uL (1.0-4.8); Lymphocytes % (A) 18 %; MCH 29.7 pg (25.0-35.0); MCHC 33.1 g/dL (31.0-37.0); MCV 89.9 fL (80.0-100.0); Mean Platelet Volume 7.8; Monocytes # (A) 0.5 k/uL (0-1.0); Monocytes % (A) 5 %; Neutrophils % (A) 72 %; Platelet Count 313 k/uL (150-450); RBC 4.89 m/uL (4.30-5.90); RDW 16.1 % (11.5-15.5); WBC 9.7 k/uL (3.8-10.6)
[2018-10-15 14:38] LABS: ALT 27 U/L (21-72); AST 25 U/L (17-59); African American GFR (CKD) >90 (>60 ml/min/1.73 sqM); Albumin 4.5 g/dL (3.5-5.0); Alkaline Phosphatase 114 U/L (38-126); Anion Gap 12 mmol/L; Blood Urea Nitrogen 19 mg/dL (9-20); Calcium 9.8 mg/dL (8.4-10.2); Carbon Dioxide 25 mmol/L (22-30); Chloride 105 mmol/L (98-107); Glucose 101 mg/dL (74-99); Magnesium 1.9 mg/dL (1.6-2.3); Sodium 142 mmol/L (137-145); Total Bilirubin 0.4 mg/dL (0.2-1.3); Total Protein 7.6 g/dL (6.3-8.2)
[2018-10-15 14:48] LABS: INR 0.9 (<1.2); Partial Thromboplastin Time 25.6 sec (22.0-30.0); Prothrombin Time 10.2 sec (9.0-12.0)
[2018-10-15] MEDS ORDERED: SODIUM CHLORIDE 0.9% 500 ML 500 ML IV ONE ×2 (15:46→16:31)
[2018-10-15] MEDS: SODIUM CHLORIDE 0.9% 1,000 ML IV SCH (16:01)
--- NOTE | 2018-10-15 16:12 | XR ---
EXAMINATION TYPE: XR chest 2V DATE OF EXAM: 10/15/2018 COMPARISON: 05/24/2018 HISTORY: 53-year-old male with pain TECHNIQUE: PA and lateral views FINDINGS: Heart normal size. Aorta and pulmonary vasculature within normal limits. There is mild patchy density at the cardiac apex. Strandy atelectasis and mild interstitial prominence and mild hyperinflation. IMPRESSION: COPD. Some patchy atelectasis versus early infiltrate at the inferior lingula.
[2018-10-15] MEDS ORDERED: NALOXONE 0.4 MG/ML 1 ML VIAL IV PRN (16:31)
[2018-10-15] MEDS ORDERED: ACETAMINOPHEN TAB 325 MG TAB PO PRN (16:31)
[2018-10-15] MEDS: DILTIAZEM 125 MG in SODIUM CHLORIDE 0.9% 100 ML IV SCH (16:53)
[2018-10-16] MEDS: METOPROLOL TARTRATE 5 MG/5 ML VIAL IVP SCH ×5 (02:25→02:29)
[2018-10-16] MEDS: SODIUM CHLORIDE 0.9% 1,000 ML IV SCH ×2 (06:59→20:08)
[2018-10-16 09:23] LABS: Basophils % (A) 0 %; Eosinophils # (A) 0.2 k/uL (0-0.7); Eosinophils % (A) 3 %; HCT 37.5 % (39.0-53.0); Lymphocytes # (A) 1.1 k/uL (1.0-4.8); Lymphocytes % (A) 16 %; MCH 29.3 pg (25.0-35.0); MCHC 32.1 g/dL (31.0-37.0); MCV 91.2 fL (80.0-100.0); Mean Platelet Volume 8.2; Monocytes # (A) 0.3 k/uL (0-1.0); Monocytes % (A) 4 %; Neutrophils # (A) 5.4 k/uL (1.3-7.7); Neutrophils % (A) 76 %; Platelet Count 224 k/uL (150-450); RBC 4.11 m/uL (4.30-5.90); RDW 15.3 % (11.5-15.5); WBC 7.1 k/uL (3.8-10.6)
[2018-10-16 09:26] LABS: ALT 23 U/L (21-72); AST 20 U/L (17-59); African American GFR (CKD) >90 (>60 ml/min/1.73 sqM); Albumin 3.7 g/dL (3.5-5.0); Alkaline Phosphatase 97 U/L (38-126); Anion Gap 8 mmol/L; Blood Urea Nitrogen 17 mg/dL (9-20); Calcium 8.8 mg/dL (8.4-10.2); Carbon Dioxide 26 mmol/L (22-30); Chloride 105 mmol/L (98-107); Glucose 128 mg/dL (74-99); Potassium 4.4 mmol/L (3.5-5.1); Sodium 139 mmol/L (137-145); Total Bilirubin 0.5 mg/dL (0.2-1.3); Total Protein 6.3 g/dL (6.3-8.2)
[2018-10-16] MEDS: FLECAINIDE 50 MG TAB PO SCH ×2 (10:26→20:06)
[2018-10-16] MEDS: ATORVASTATIN 40 MG TAB PO SCH (10:27)
[2018-10-16] MEDS: LISINOPRIL 10 MG TAB PO SCH (10:27)
[2018-10-16] MEDS: EDOXABAN TOSYLATE 60 MG TABLET PO SCH (10:27)
[2018-10-16] MEDS: METOPROLOL TARTRATE 50 MG TAB PO SCH ×2 (10:27→20:06)
--- NOTE | 2018-10-16 10:48 | US ---
EXAMINATION TYPE: US venous doppler duplex LE RT DATE OF EXAM: 10/16/2018 9:45 AM COMPARISON: NONE CLINICAL HISTORY: POSSIBLE DVT. Post right groin cardiac catheterization 4 weeks ago with cardiac abl ation and c/o right groin numbness and tingling radiating to rt knee x 1.5 weeks. Patient stated has had multiple surgeries right leg. SIDE PERFORMED: Right TECHNIQUE: The lower extremity deep venous system is examined utilizing real time linear array sonog nicole with graded compression, doppler sonography and color-flow sonography. VESSELS IMAGED: Common Femoral Vein Deep Femoral Vein Greater Saphenous Vein * Femoral Vein Popliteal Vein Small Saphenous Vein * Proximal Calf Veins (* superficial vessels) There is normal flow, compressibility, vascular waveforms. Right Leg: Negative for DVT. Couple of lymph nodes seen at right groin with larger = 0.1 x 0.1 x 0.1 cm. IMPRESSION: No evident deep venous thrombosis at or above the right knee.
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
--- NOTE | 2018-10-16 11:42 | CONS ---
CONSULTATION Mr. Matthew Burden is a 53-year-old gentleman with a known diagnosis of persistent atrial fibrillation, who underwent a pulmonary vein isolation procedure by Dr. Ibarra on the August. He comes into the hospital, complains of mainly discomfort in the right leg between his thigh and knee area. Since and before the procedure, he was well anticoagulated with the Savaysa 60 mg daily. He also has hypertension, hyperlipidemia for which he takes atorvastatin, lisinopril and metoprolol. He was discharged on flecainide 50 mg b.i.d., did not have any issues with any palpitations. He came into the hospital mostly with complaints of right lower extremity discomfort and a venous Doppler did not reveal any pseudoaneurysm in the area. However, while he was in the emergency room, he had on the monitor revealed atrial flutter with a 2:1 conduction and he received some Cardizem intravenously and also IV metoprolol and after that he spontaneously converted to sinus rhythm. I reviewed the EKG and this suggests flutter with a 2:1 conduction and does not seem to be atrial fibrillation. I am seeing him mainly because of this flutter episode and also right lower extremity discomfort. He is comfortable, but when he ambulates, he has discomfort and the pulses in the right lower extremity are also diminished. PAST MEDICAL HISTORY: 1. Persistent atrial fibrillation, status post pulmonary vein isolation procedure performed on 09/14/2018. 2. Hypertension. 3. Hyperlipidemia. 4. Probable history of sleep apnea. MEDICATIONS: Medications at home include Savaysa 60 mg daily, Lipitor 40 mg daily, flecainide 50 mg b.i.d., lisinopril 10 mg daily and metoprolol tartrate 50 mg b.i.d. ALLERGIES: No known drug allergies. PHYSICAL EXAMINATION: On examination, blood pressure is 118/70, pulse rate 70 per minute regular. HEENT: Unremarkable. Fundus was not examined by me. NECK: Supple. No JVD. I do not hear a carotid bruit. HEART: Exam reveals S1, S2 heard normally without a rub, murmur or gallop. LUNGS: Are clear. ABDOMEN: Is soft, nontender. LOWER EXTREMITIES: Reveal no edema. Pulse in the right lower extremity is diminished. The dorsalis pedis is diminished compared to the left. CENTRAL NERVOUS SYSTEM: Grossly within normal limits. EKG on arrival revealed atrial flutter with a 2:1 block. Now he is in sinus rhythm. Laboratory data does not reveal any significant abnormalities. IMPRESSION: 1. Paroxysmal atrial flutter. 2. History of persistent atrial fibrillation, status post pulmonary vein isolation on 09/14/2018. 3. Hypertension. 4. Hyperlipidemia. 5. Right lower extremity discomfort. Pulses are diminished to rule out any thromboembolic phenomena or vascular disease in the right lower extremity arterial system. RECOMMENDATIONS: I am recommending that we increase the flecainide to 75 mg b.i.d. and continue his other medications. Additionally I will do an arterial Doppler of lower extremity to look for any evidence of obstruction. I discussed my thoughts in detail with the patient. Regarding his atrial flutter, we will increase to 75 mg b.i.d. and when he sees Dr. Ibarra, we will discuss further if this becomes a recurrent issue flutter ablation may be necessary. Thank you very much for the consult. HECTORL / IJN: [id number] /
[2018-10-16] MEDS: DILTIAZEM 125 MG in SODIUM CHLORIDE 0.9% 100 ML IV SCH (18:38)
[2018-10-16 23:24] VITALS: RESP 16
--- NOTE | 2018-10-17 06:06 | CONS ---
DATE OF CONSULTATION: 10/16/2018 This is a 53-year-old gentleman who had a venous ablation of the heart for atrial fibrillation about 3 weeks ago. According to the patient, after 2 weeks, he noticed some discomfort in the upper thigh area. The patient came to the emergency room. The patient is atrial fibrillation and treated medically. I was consulted for vascular evaluation. MEDICAL HISTORY: History of hypertension, hyperlipidemia, history of atrial fibrillation. MEDICATIONS: Patient is on Savaysa 60 mg daily, Lipitor 40 mg daily and flecainide 50 mg b.i.d. Concern was about possible clot in the arterial system. The patient had a venous ultrasound done which showed no evidence of deep vein thrombosis. The patient also had a pulse volume recording for the arterial study which report is pending. PHYSICAL EXAMINATION: On examination, patient was seen in his room, lying comfortably in bed. NECK: Supple. CHEST: Clear. ABDOMEN: Soft. Femorals are palpable bilaterally, popliteals 1+, posterior tibial by the Doppler. Normal motor function. The patient has some discomfort in the thigh area, though no evidence of any hematoma. At this point, there is a concern about since patient has atrial fibrillation, possible clot in the femoral artery, but at this point, his circulation is very decent. If the pain persists, we will do the angiogram. In the meantime, we will follow with you and I have discussed with Cardiology and follow with you. ROLDAN / JACI: [id number] / DEXTER
[2018-10-17 07:11] LABS: Basophils % (A) 0 %; Eosinophils # (A) 0.2 k/uL (0-0.7); Eosinophils % (A) 4 %; HCT 35.4 % (39.0-53.0); HGB 11.7 gm/dL (13.0-17.5); Lymphocytes % (A) 15 %; MCH 30.2 pg (25.0-35.0); MCHC 32.9 g/dL (31.0-37.0); MCV 91.8 fL (80.0-100.0); Monocytes # (A) 0.3 k/uL (0-1.0); Monocytes % (A) 4 %; Neutrophils # (A) 5.1 k/uL (1.3-7.7); Neutrophils % (A) 76 %; Platelet Count 201 k/uL (150-450); RBC 3.86 m/uL (4.30-5.90); RDW 15.7 % (11.5-15.5); WBC 6.7 k/uL (3.8-10.6)
--- NOTE | 2018-10-17 07:27 | CONS ---
CONSULTATION ADDENDUM: This gentleman had 8 surgeries done on his right leg and foot about 20 years ago. He had history of fall. He went to [facility]. He had about 8 surgeries for the right lower extremity fracture of the tibia and fibula and he always complains of discomfort and pain in his right ankle. ROLDAN / JACI: [id number] /
[2018-10-17 07:46] LABS: ALT 22 U/L (21-72); AST 21 U/L (17-59); African American GFR (CKD) >90 (>60 ml/min/1.73 sqM); Albumin 3.4 g/dL (3.5-5.0); Alkaline Phosphatase 87 U/L (38-126); Anion Gap 7 mmol/L; Blood Urea Nitrogen 12 mg/dL (9-20); Calcium 8.8 mg/dL (8.4-10.2); Carbon Dioxide 26 mmol/L (22-30); Chloride 106 mmol/L (98-107); Glucose 97 mg/dL (74-99); Potassium 4.4 mmol/L (3.5-5.1); Sodium 139 mmol/L (137-145); Total Bilirubin 0.4 mg/dL (0.2-1.3); Total Protein 5.9 g/dL (6.3-8.2)
[2018-10-17] MEDS ORDERED: FAMOTIDINE 20 MG TAB PO SCH (09:00)
[2018-10-17] MEDS: LISINOPRIL 10 MG TAB PO SCH (09:54)
[2018-10-17] MEDS: ATORVASTATIN 40 MG TAB PO SCH (09:54)
[2018-10-17] MEDS: FLECAINIDE 50 MG TAB PO SCH (09:54)
[2018-10-17] MEDS: METOPROLOL TARTRATE 50 MG TAB PO SCH (09:54)
[2018-10-17] MEDS: EDOXABAN TOSYLATE 60 MG TABLET PO SCH (09:54)
[2018-10-17 10:39] VITALS: BP 143/83; PULSE 55; TEMP 97.8
--- NOTE | 2018-10-17 10:45 | CT ---
CT angiogram of the thoracic and abdominal aorta with runoff HISTORY: Peripheral vascular occlusive disease, right groin pain Helical acquisition obtained through the aorta and outflow vasculature, three-dimensional reconstruct ions were performed on an additional workstation Correlation to CT angiogram 05/24/2018 The thoracic aorta is patent and borderline aneurysmal, aortic root measures just under 4 cm, descend ing aorta only 3.3 cm, proximal descending aorta 2.7 cm. Coronary artery calcifications are mild. The re is no evident dissection. 3 super aortic branch vessels are present. The celiac axis, superior mes enteric artery, left and right renal arteries, inferior mesenteric artery are patent. Abdominal aorta shows no dissection or aneurysm. Atheromatous changes are present. Common iliac, internal and director employee communications al iliac arteries are patent. The common femoral, deep and superficial femoral arteries are patent. P opliteal arteries are patent. Trifurcation vessels are patent. Emphysematous changes are extensive within the lungs. Degenerative disc changes present within the vi sualized spine. Liver shows low attenuation. Gallbladder is contracted. Diverticular changes associat ed with the colon. IMPRESSION: Normal aorta and outflow, mild atheromatous changes are present as described.
[2018-10-17] MEDS: SODIUM CHLORIDE 0.9% 1,000 ML IV SCH (10:54)
--- NOTE | 2018-10-17 11:46 | P.DS ---
Providers Date of admission: 10/15/18 16:31 Attending physician: Juna Sher MD Consults: 10/15/18 16:32 Consult Physician Routine Consulting Provider: Stewart Ibarra Consult Reason/Comments: Atrial flutter with RVR Do you want consulting provider notified?: Yes 10/16/18 16:14 Consult Physician Routine Consulting Provider: Raleigh Edge Consult Reason/Comments: possible DVT, recent ablation Do you want consulting provider notified?: Yes Primary care physician: Valerie Moncada - Discharge Diagnosis(es) (1) Paroxysmal atrial flutter Current Visit: Yes Status: Acute Hospital Course: Matthew Burden is a 53-year-old male with PMH of PAF, HTN, HLD, OA, ex-smoker. Patient presented with complaints of increased right groin pain after having underwent an ablation approximately [address] Ibarra. Patient reports that the pain started about 3 days prior to admission and had increased in pain. In the ED, patient was found to be in atrial flutter with 2:1 AV conduction and heart rate in the 150s. Patient was loaded on cardizem in the ED and converted to sinus rhythm. Cardiology was consulted and recommended increasing pt's flecanide from 50 mg bid to 75 mg bid. Ultrasound of lower extremities completed showing no evidence of pseudoaneurysm or DVT. Vascular surgery was consulted to rule out arterial clot. CT angiogram was completed and unremarkable. He is discharged home in stable condition and recommended to follow up with PCP and cardiology. Pertinent Studies: CT angiogram, venous Doppler Patient Condition at Discharge: Stable Plan - Discharge Summary Discharge Rx Participant: No New Discharge Prescriptions: New Flecainide [Tambocor] 75 mg PO Q12HR 30 Days #60 tab Continue Lisinopril [Zestril] 10 mg PO DAILY Atorvastatin Calcium [Lipitor] 40 mg PO QAM Metoprolol Tartrate [Lopressor] 50 mg PO BID #60 tab Edoxaban Tosylate [Savaysa] 60 mg PO DAILY Discontinued Flecainide [Tambocor] 50 mg PO Q12HR Discharge Medication List Lisinopril [Zestril] 10 mg PO DAILY 07/07/17 [History] Atorvastatin Calcium [Lipitor] 40 mg PO QAM 05/24/18 [History] Metoprolol Tartrate [Lopressor] 50 mg PO BID #60 tab 02/07/19 [Rx] Edoxaban Tosylate [Savaysa] 60 mg PO DAILY 09/12/18 [History] Flecainide [Tambocor] 75 mg PO Q12HR 30 Days #60 tab 10/16/18 [Rx] Follow up Appointment(s)/Referral(s): Stewart Ibarra MD [STAFF PHYSICIAN] - 1-2 Days (Office will call with follow up appointment. ) Valerie Moncada DO [Primary Care Provider] - 1-2 days Patient Instructions/Handouts: Atrial Flutter (DC) Discharge Disposition: HOME SELF-CARE
--- NOTE | 2018-10-17 12:03 | PN ---
PROGRESS NOTE This is a 53-year-old gentleman who had a cardiac ablation for atrial fibrillation. Patient came yesterday to the emergency room complaining of discomfort and burning sensation to the right thigh area. I was consulted for vascular evaluation. PHYSICAL EXAMINATION: Femorals are present, post tibial is by the Doppler. We did a CTA of the abdomen with runoff. Both femorals were patent. Right popliteal and superficial femoral artery found to be patent. Posterior tibial was visualized. Anterior tibial was visualized. There was no evidence of clot seen into the femoral popliteal or infrapopliteal vessels. The right foot is warm and normal motor function. Discussed with Dr. Ladarius Barry. Patient can be discharged. MMODL / IJN: [id number] /
--- NOTE | 2018-10-17 16:42 | PN ---
PROGRESS NOTE DATE OF SERVICE: Mr. Burden was seen by Dr. Edge, who initially suggested discharge but then decided to do a CT angio because of continued right lower extremity discomfort and decreased temperature of the leg. CT apparently was performed. I personally spoke to Dr. Edge. Apparently the blood flow is very good. No cause for concern. Patient had atrial flutter and he will see Dr. Eng in the office. He will make an appointment to see Dr. Ibarra for flutter ablation. On September 14 he had atrial fibrillation ablation. He is on Savaysa 60 mg daily, but his GFR is high. We will switch him to Eliquis 5 mg b.i.d. Vitals are stable. S1, S2 heard normally. Lungs are clear. Abdomen and lower extremity exam unchanged. Lower extremities reveal pulses diminished on the right side, normal on the left side, unchanged from yesterday. Will increase activity and discharge him today. MMODL / IJN: [id number] /
[2018-10-17] MEDS ORDERED: APIXABAN 5 MG TAB PO SCH (21:00)
--- NOTE | 2018-10-18 08:01 | CDI ---
Documentation Clarification Form Date: 10/18/18 From: Madisyn Huerta Phone: If questions call Katie Capone @ [phone], Hours-8:30 am & 5 pm MEmily Hurd Admit Date: 10/15/2018 4:31:00 PM Patient Name: Matthew Burden Visit Number: [id number] Discharge Date: 10/17/2018 2:55:00 PM ATTENTION: The Clinical Documentation Specialists (CDI) and [employer] Coding Staff appreciate your assistance in clarifying documentation. Please respond to the clarification below the line at the bottom and electronically sign. The CDI & [employer] Coding staff will review the response and follow-up if needed. Please note: Queries are made part of the Legal Health Record. If you have any questions, please contact the author of this message via ITS. Dr. Benjy Barry Atrial Flutter is documented in the ED note, H&P, your consult, your 10/17 PN & DS. History/Risk factors: recent ablation, hyperlipidemia, HTN, OA, hx smoking EKG/telemetry: atrial flutter with a 2:[address] abnormality. Ventricular rate 157, QRS duration 72, QT/QTc to 260/420, P-R-T axes *25 56 Treatment: IV Cardizem, Lopressor In your professional opinion, in order to capture the severity of condition; can you please clarify the type of Atrial Flutter if known? Typical/Type I Atypical/Type II Other, please specify Unable to determine Typical Atrial flutter MTDD
--- NOTE | 2018-10-18 15:13 | P.ARTDOP ---
Arterial Doppler LOWER EXTREMITY ARTERIAL DOPPLER: DATE OF SERVICE: 10/16/2018 Reason for study: Numbness and pain right leg. Doppler waveforms: Multiphasic throughout on the right. Pulse volume recording: []. Pressure gradients: None. Ankle-brachial indices: Greater than 1 bilaterally. Toe pressures: [] on the right, [] on the left Impression: Normal study.
== END 2018-10-17 14:55 | disposition home or self-care (01) | DRG 310 ==
LOC: EC 11:04 → 3SCARD 16:31
PROVIDERS: ADMIT Family Medicine; ATTEND Family Medicine
PROC: B44FZZZ Ultrasonography of Right Lower Extremity Arteries (ICD-10-PCS; principal; 2018-10-16)
DX: I48.3 Typical atrial flutter (principal); E78.5 Hyperlipidemia, unspecified; I48.0 Paroxysmal atrial fibrillation; R10.31 Right lower quadrant pain; I10 Essential (primary) hypertension; J44.9 Chronic obstructive pulmonary disease, unspecified; G47.30 Sleep apnea, unspecified; M25.571 Pain in right ankle and joints of right foot; M19.90 Unspecified osteoarthritis, unspecified site; Z79.899 Other long term (current) drug therapy; Z87.891 Personal history of nicotine dependence; Z98.890 Other specified postprocedural states; Z91.030 Bee allergy status; Z80.3 Family history of malignant neoplasm of breast; Z80.52 Family history of malignant neoplasm of bladder
CPT/HCPCS: 36415; 71046; 71275; 75635; 80053; 83735; 84484; 85025; 85610; 85730; 93005; 93922; 93975; 96361; 96365; 96366; 96375; 99285

== ENCOUNTER → 2018-11-22 | Outpatient (CLI) | payer BC ==
[2018-11-22 10:44] LABS: HCT 39.1 % (39.0-53.0); MCH 30.4 pg (25.0-35.0); MCHC 33.3 g/dL (31.0-37.0); MCV 91.1 fL (80.0-100.0); Mean Platelet Volume 7.5; Platelet Count 224 k/uL (150-450); RBC 4.29 m/uL (4.30-5.90); RDW 14.1 % (11.5-15.5); WBC 8.3 k/uL (3.8-10.6)
[2018-11-22 10:57] LABS: African American GFR (CKD) >90 (>60 ml/min/1.73 sqM); Anion Gap 8 mmol/L; Blood Urea Nitrogen 17 mg/dL (9-20); Carbon Dioxide 25 mmol/L (22-30); Chloride 105 mmol/L (98-107); Potassium 5.1 mmol/L (3.5-5.1); Sodium 138 mmol/L (137-145)
== END | disposition home or self-care (01) ==
LOC: LABPAT 09:40
PROVIDERS: ATTEND Internal Medicine Interventional Cardiology
DX: Z01.812 Encounter for preprocedural laboratory examination (principal); I48.3 Typical atrial flutter
CPT/HCPCS: 36415; 80051; 82565; 84520; 85027

== ENCOUNTER 2018-11-24 05:59 | Day surgery (SDC) | payer BC ==
[2018-11-22 15:14] VITALS: BMI 35.5
[2018-11-24] MEDS ORDERED: SODIUM CHLORIDE 0.9% 1,000 ML IV SCH ×2 (06:00→07:30)
[2018-11-24] MEDS ORDERED: LACTATED RINGERS 1,000 ML IV SCH (06:04)
[2018-11-24 06:35] VITALS: RESP 16; TEMP 98
[2018-11-24] MEDS ORDERED: SODIUM CHLORIDE 0.9% 1,000 ML IV ONE (06:38)
[2018-11-24] MEDS ORDERED: PROPOFOL 10 MG/ML 20 ML VIAL IV ONE (07:15)
[2018-11-24] MEDS ORDERED: LIDOCAINE 1% INJ 10MG/ML (20 ML MDV) ONE (07:15)
[2018-11-24] MEDS ORDERED: NON FORMULARY DRUG (Tiotropium 18 Mcg/Puff 1 PUFF) INHALATION PRN (07:30)
--- NOTE | 2018-11-24 08:37 | CE ---
CARDIAC ELECTROPHYSIOLOGY REPORT CARDIOVERSION PROCEDURE NOTE: INDICATION: Atrial flutter. PROCEDURE: After explaining the procedure to the patient, its risks and complications, his blood pressure, heart rate, O2 saturation was monitored after obtaining sedated state by the anesthesia department, a synchronized biphasic cardioversion was 200 and subsequently 300 joules was successful in restoring sinus mechanism. There was no immediate complication. ROLDAN / JACI: [id number] /
[2018-11-24] MEDS ORDERED: FLECAINIDE 50 MG TAB PO SCH (09:00)
[2018-11-24] MEDS ORDERED: ATORVASTATIN 40 MG TAB PO SCH (09:00)
[2018-11-24] MEDS ORDERED: APIXABAN 5 MG TAB PO SCH (09:00)
[2018-11-24] MEDS ORDERED: METOPROLOL TARTRATE 50 MG TAB PO SCH (09:00)
[2018-11-24] MEDS ORDERED: LISINOPRIL 10 MG TAB PO SCH (09:00)
[2018-11-24 09:19] VITALS: BP 99/68; PULSE 67
== END 2018-11-24 09:18 | disposition home or self-care (01) ==
LOC: CATHCVL 05:59
PROVIDERS: ATTEND Internal Medicine Interventional Cardiology
DX: I48.3 Typical atrial flutter (principal); I48.0 Paroxysmal atrial fibrillation; I10 Essential (primary) hypertension; E78.2 Mixed hyperlipidemia; I49.5 Sick sinus syndrome; Z72.0 Tobacco use; Z82.49 Family history of ischemic heart disease and other diseases of the circulatory system; Z79.01 Long term (current) use of anticoagulants; Z79.899 Other long term (current) drug therapy
CPT/HCPCS: 92960; J2001; J2704

== ENCOUNTER → 2018-12-30 | Outpatient (CLI) | payer BC ==
[2018-12-30 11:52] LABS: HCT 38.7 % (39.0-53.0); HGB 12.4 gm/dL (13.0-17.5); MCH 28.6 pg (25.0-35.0); MCV 89.2 fL (80.0-100.0); Mean Platelet Volume 7.8; Platelet Count 256 k/uL (150-450); RBC 4.34 m/uL (4.30-5.90); RDW 14.4 % (11.5-15.5)
[2018-12-30 16:52] LABS: African American GFR (CKD) 98.5 (60.0-200.0); Anion Gap 9.5 mmol/L (4.00-12.00); Carbon Dioxide 23.5 mmol/L (21.6-31.8); Non-African American GFR(CKD) 84.9 (60.0-200.0); Potassium 4.9 mmol/L (3.5-5.5)
== END | disposition home or self-care (01) ==
LOC: LABWHC1 10:54
PROVIDERS: ATTEND Internal Medicine Clinical Cardiac Electrophysiology
DX: Z01.812 Encounter for preprocedural laboratory examination (principal); I48.0 Paroxysmal atrial fibrillation; I48.3 Typical atrial flutter
CPT/HCPCS: 36415; 80051; 82565; 82947; 84520; 85027

== ENCOUNTER 2019-01-08 11:08 | Day surgery (SDC) | payer BC ==
[~2019-01-08 11:08] MED LIST changes: +DEXAMETHASONE SOD PHOSPHATE 10 MG/ML 1 ML VIAL IV ONE; +LIDOCAINE 1% 20 ML VIAL (10MG/ML) FOR IV START INTRADERMA PRN; +MIDAZOLAM 2 MG/2 ML VIAL IV PRN; +SODIUM CHLORIDE 0.9% 1,000 ML IV SCH; +fentaNYL (PF) 50 MCG/ML 2 ML AMP IV PRN
[2019-01-08] MEDS ORDERED: SODIUM CHLORIDE 0.9% 1,000 ML IV ONE (11:39)
[2019-01-08] MEDS ORDERED: SUCCINYLCHOLINE CHLORIDE 100 MG/5 ML SYR IV ONE (15:15)
[2019-01-08] MEDS ORDERED: PROTAMINE SULFATE 10 MG/ML 5 ML VIAL IV ONE (15:15)
[2019-01-08] MEDS ORDERED: PROPOFOL 10 MG/ML 20 ML VIAL IV ONE (15:15)
[2019-01-08] MEDS ORDERED: FUROSEMIDE 10 MG/ML 2 ML VIAL ONE (15:15)
[2019-01-08] MEDS ORDERED: MIDAZOLAM 2 MG/2 ML VIAL ONE (15:15)
[2019-01-08] MEDS ORDERED: METOPROLOL TARTRATE 5 MG/5 ML VIAL IVP ONE (15:15)
[2019-01-08] MEDS ORDERED: PHENYLEPHRINE-0.9% NACL SYG 1 MG/10 ML SYRINGE ONE (15:15)
[2019-01-08] MEDS ORDERED: NEOSTIGMINE 1 MG/ML 10 ML VIAL ONE (15:15)
[2019-01-08] MEDS ORDERED: GLYCOPYRROLATE 0.2 MG/ML 2 ML VIAL ONE (15:15)
[2019-01-08] MEDS ORDERED: HEPARIN SODIUM,PORCINE 10,000 UNIT/ML 1 ML VIAL ONE (15:15)
[2019-01-08] MEDS ORDERED: ROCURONIUM BROMIDE 10 MG/ML 10 ML VIAL IV ONE (15:15)
[2019-01-08] MEDS ORDERED: ISOPROTERENOL 250 MCG/1.25 ML SYR IV ONE (15:15)
[2019-01-08] MEDS ORDERED: fentaNYL (PF) 50 MCG/ML 2 ML AMP ONE (15:15)
[2019-01-08] MEDS ORDERED: LIDOCAINE 1% INJ 10MG/ML (20 ML MDV) ONE (15:52)
[2019-01-08] MEDS ORDERED: LIDOCAINE 1% INJ 10MG/ML (20 ML MDV) SQ ONE (16:01)
[2019-01-08] MEDS ORDERED: HEPARIN SOD,PORK IN 0.45% NACL 25,000 UNIT in 0.45% NACL 1 250ML.BAG IV ONE (16:20)
[2019-01-08] MEDS ORDERED: HEPARIN SODIUM (1,000 UNIT/ML) 1,000 UNIT in SODIUM CHLORIDE 0.9% 1,000 ML IRRIGATION ONE (16:21)
[2019-01-08] MEDS ORDERED: LACTATED RINGERS 1,000 ML IV ONE ×2 (18:00→19:52)
[2019-01-08] MEDS ORDERED: ACETAMINOPHEN TAB 325 MG TAB PO PRN (19:52)
[2019-01-08] MEDS ORDERED: HYDROcodone/APAP 5-325MG 1 EACH TAB PO PRN (19:52)
[2019-01-08] MEDS ORDERED: ACETAMINOPHEN IV (For NPO) 1,000 MG in EMPTY BAG 1 BAG IVPB ONE (20:30)
[2019-01-08] MEDS ORDERED: HYDROmorphone 1 MG/ML 1 ML SYRINGE IVP ONE (21:16)
--- NOTE | 2019-01-08 21:28 | PCN ---
PROCEDURE NOTE Mr. Burden is a 53-year-old male patient who continues to have recurrent atrial fibrillation with RVR with aberrant conduction as well as atrial flutter. He is on flecainide 100 mg twice daily. He underwent cryoablation in the past, but this had to be prematurely terminated on account of transient phrenic nerve paresis which resolved quickly. He is brought back for an atrial fibrillation ablation with PVI and atrial flutter ablation. Patient is brought to the EP lab in a fasting state. Written informed consent was obtained prior to the procedure. The procedure was performed under general anesthesia. A Circa catheter was placed in the esophagus for temperature monitoring. The patient was in sinus rhythm at the start of the study. Sinus cycle length 708 milliseconds, AZ interval 125 milliseconds, QRS 99 milliseconds, QT interval 367 milliseconds. The baseline AH interval was 46 milliseconds, HV interval 56 milliseconds. Normal sinus node function was noted with pacing close to the sinus node. AV node Wenckebach block 310 milliseconds, VA Wenckebach block 80 milliseconds. Harris response to HIS bundle pacing. Venous sheaths were placed in the right and left femoral veins. Right atrial pressure 16/9/13 mmHg and LA pressure 28/7/17 mmHg. Intracardiac echocardiography was performed. No thrombus was noted in the left or right atrial appendage. No pericardial effusion was noted. Transseptal catheterization was performed. Following that, a PentaRay catheter was placed in the left atrium for 3D electro anatomic mapping. Voltage map of the pulmonary veins and the left atrium was made. The carinal aspect of both the veins had electrograms and voltage and especially the right-sided pulmonary veins which had not been completely isolated the last time on account of phrenic nerve paresis with cryoablation. Wide big sandy antral ablation was performed around the pulmonary veins on the right side anteriorly. This extended to the septum to the fossa ovalis. Later this was connected to the separate ablation set lesions on the fossa ovalis on the septum. Posteriorly this was extended while avoiding the esophagus, which was the left-sided esophagus. A complete line of block was made and exit block was proven in the right-sided veins. Next, the left-sided veins posteriorly had non capture along the open edge of the previous ablation line. However, anteriorly there were signals along the anterior oseas as well as capture with high-output pacing. Therefore, an RF line was made from the superior to the inferior veins along the anterior ridge between the appendage and the left-sided veins. Following that, there was complete exit block along the left- sided veins. Next, mapping was performed along the septum while the patient was being prepared for placement of catheters at the start of the study. He was initially in sinus rhythm. Under anesthesia, he spontaneously went into atrial fibrillation. This atrial fibrillation terminated as soon as he crossed the fossa ovalis. Therefore, RF ablation was performed around the foci ovalis. Prior to this with intracardiac echo, the fossa ovalis was clearly identified and tagged, RF ablation was performed within the fossa ovalis. This lesion set was then connected to the anterior margin of the right superior pulmonary vein ablation line. Following that, high-dose Isuprel was given for 5 to 6 minutes. Burst stimulation was performed with high-output pacing down to 200 milliseconds. On high-dose Isuprel with rapid pacing at 214 milliseconds, atrial fibrillation was induced. This was a very rapid atrial tachycardia cycle length of 160 milliseconds with a change in patterns from atrial fibrillation to a very organized rapid atrial tachycardia with extremely short cycle length sometimes with a concentric activation, at other times with the eccentric activation. RF ablations were performed in the distal coronary sinus, but this resulted in slight lengthening of the tachycardia, but did not terminate the tachycardia. Following that, the catheter was removed from the left atrium and placed in the right atrium. Intracardiac echocardiography was performed. 3D electro anatomic mapping was performed in the right atrial isthmus. RF ablation was performed along the right atrial isthmus. This was the most difficult part of the ablation. After completing the RF line from the tricuspid anulus to the eustachian ridge, a complete line anatomically was made with good power and good contact force. Yet complete bidirectional block could not be achieved. Therefore, a slightly more septal line was then made and RF ablation was performed along this line with 40 finney of power for 20 seconds at each site. Following this, there was complete bidirectional block. Review of the intracardiac echo revealed very small crypts and pouches in the mid section of the isthmus. In addition, when ablating the eustachian ridge, multiple atrial tachycardias were induced and this finally resolved when the eustachian ridge was completely ablated. It was also noted that when pacing the right atrial free wall, the patient had inducible atrial tachycardias, nonsustained simply with straight pacing at paced cycle length of 700 milliseconds. At the end of the procedure, intracardiac echocardiogram cardiography did not reveal any pericardial effusion. All catheters removed. The patient received 40 mg of IV Lasix and sheaths were removed after reversal with protamine. RESULT: 1. Successful ablation of the pulmonary veins especially the right-sided pulmonary veins. Wide big sandy antral isolation was performed around both pulmonary veins as a single set lesion. This area was tested for phrenic nerve stimulation prior to ablation. There was no evidence of nerve stimulation at the antral level. 2. RF ablation in the fossa ovalis of the septum. 3. RF ablation in the distal coronary sinus with slight lengthening of the atrial fibrillation cycle length. 4. Typical atrial flutter ablation with bidirectional block. MMODL / IJN: [id number] /
[2019-01-08 21:50] VITALS: BMI 33.6
[2019-01-08 22:25] VITALS: RESP 18
[2019-01-08] MEDS: METOPROLOL TARTRATE 50 MG TAB PO SCH (23:14)
[2019-01-08] MEDS: FLECAINIDE 50 MG TAB PO SCH (23:14)
[2019-01-09] MEDS: APIXABAN 5 MG TAB PO SCH ×2 (01:47→08:31)
[2019-01-09] MEDS: METOPROLOL TARTRATE 50 MG TAB PO SCH (08:30)
[2019-01-09] MEDS: FLECAINIDE 50 MG TAB PO SCH (08:30)
[2019-01-09] MEDS ORDERED: LISINOPRIL 10 MG TAB PO SCH (09:00)
[2019-01-09] MEDS ORDERED: ATORVASTATIN 40 MG TAB PO SCH (09:00)
--- NOTE | 2019-01-09 09:25 | P.DS ---
Providers Attending physician: Stewart Ibarra Primary care physician: [facility] Course: Patient is a 53-year-old male with a past medical history of atrial flutter and recurrent atrial fibrillation with RVR status post cryo-ablation who presented for atrial fibrillation ablation and atrial flutter ablation. Patient had recurrent symptomatic atrial fibrillation with RVR and had undergone cryoablation in the past but PVI was not completed due to transient phrenic nerve paresis. Yesterday he underwent successful PVI with radiofrequency ablation, as well as ablation of the fossa ovalis, distal coronary sinus, and a typical atrial flutter ablation. Patient did well overnight. Patient seen and examined resting comfortably in bed. States he has been getting up and walking around. No dizziness, lightheadedness or syncope. Complaining of a mild sore throat and pain in his neck. He was able to eat his breakfast without any difficulties. No chest pain or shortness of breath. He had his Ag removed this morning but has not been able to urinate yet. EKG today shows sinus mechanism Temperature 97.5F, pulse 62, respirations 18, blood pressure 108/72, oxygen saturation 97% on room air Patient seen and examined resting comfortably in bed, in no acute distress Heart is regular, normal S1-S2, no murmurs or rubs appreciated Lungs are clear to auscultation bilaterally, no wheezing rhonchi or crackles No elevated JVD or lower extremity edema Bilateral groin access sites clean and dry, minimally tender to palpation, no hematomas Impression Symptomatic recurrent atrial fibrillation status post ablation, currently in sinus rhythm Typical atrial flutter status post ablation Plan Continue all current medications including flecainide and anticoagulation with eliquis Follow-up in the office within a week Plan - Discharge Summary Discharge Rx Participant: No New Discharge Prescriptions: Continue Lisinopril [Zestril] 10 mg PO DAILY Atorvastatin Calcium [Lipitor] 40 mg PO QAM Metoprolol Tartrate [Lopressor] 50 mg PO BID #60 tab Flecainide [Tambocor] 100 mg PO Q12HR Apixaban [Eliquis] 5 mg PO DAILY Tiotropium 18 Mcg/Puff [Spiriva] 1 puff INHALATION DAILY PRN PRN Reason: Dyspnea Discharge Medication List Lisinopril [Zestril] 10 mg PO DAILY 07/07/17 [History] Atorvastatin Calcium [Lipitor] 40 mg PO QAM 05/24/18 [History] Metoprolol Tartrate [Lopressor] 50 mg PO BID #60 tab 05/25/18 [Rx] Apixaban [Eliquis] 5 mg PO DAILY 11/22/18 [History] Flecainide [Tambocor] 100 mg PO Q12HR 11/22/18 [History] Tiotropium 18 Mcg/Puff [Spiriva] 1 puff INHALATION DAILY PRN 11/22/18 [History] Follow up Appointment(s)/Referral(s): Kj Eng MD [STAFF PHYSICIAN] - 1 Week Activity/Diet/Wound Care/Special Instructions: Post EP study - Ablation instructions 1. Keep access sites dry for 2 days. 2. No heavy lifting or straining for 2 days. 3. Avoid bending the hips repeatedly for 2 days. 4. You may go up and down stairs slowly Call if the following is noted 1. Bleeding, increasing swelling or pain at the access sites. 2. Increasing chest discomfort, especially upon taking a deep breath. 3. Increasing shortness of breath, at rest or with exertion. 4. Undue cough / phlegm 5. Difficulty or pain while swallowing. 6. Pain or change in color in the extremities. 7. Fever, chills, rigors. 8. Increasing headache or neurologic symptoms. 9. Dizziness, fainting, palpitations No change in medications Continue ELIQUIS
[2019-01-09 15:31] VITALS: BP 115/70; PULSE 79; TEMP 98.5
== END 2019-01-09 16:58 | disposition home or self-care (01) ==
LOC: CATHEP 11:08 → 1SOBS 19:42 → CATHEP 01-09 16:58
PROVIDERS: ATTEND Internal Medicine Clinical Cardiac Electrophysiology
DX: I48.0 Paroxysmal atrial fibrillation (principal); I48.3 Typical atrial flutter; I47.2 Ventricular tachycardia; I49.5 Sick sinus syndrome; E78.5 Hyperlipidemia, unspecified; I10 Essential (primary) hypertension; Z82.49 Family history of ischemic heart disease and other diseases of the circulatory system; Z72.0 Tobacco use; Z79.01 Long term (current) use of anticoagulants; Z79.899 Other long term (current) drug therapy; Z91.030 Bee allergy status
CPT/HCPCS: 85347; 93623; 93662; 93613; 93656; 93657; C1769 ×3; C1894; C1730; C1731; C1759; C1893; C1732; J2250; J2720; J1644 ×3; J1940; J2710; J2001; J3010; J1170; J2370; J0330; J2704

== ENCOUNTER → 2019-10-10 | Day surgery (SDC) | payer BC ==
[~2019-10-10] MED LIST changes: +APIXABAN 5 MG TAB PO SCH; +ATORVASTATIN 40 MG TAB PO SCH; -DEXAMETHASONE SOD PHOSPHATE 10 MG/ML 1 ML VIAL IV ONE; +FLECAINIDE 50 MG TAB PO SCH; -LACTATED RINGERS 1,000 ML IV SCH; -LIDOCAINE 1% 20 ML VIAL (10MG/ML) FOR IV START INTRADERMA PRN; +LIDOCAINE 1% INJ 10MG/ML (20 ML MDV) ONE; +LISINOPRIL 10 MG TAB PO SCH; +METOPROLOL TARTRATE 50 MG TAB PO SCH; -MIDAZOLAM 2 MG/2 ML VIAL IV PRN; +NON FORMULARY DRUG (Tiotropium 18 Mcg/Puff 1 PUFF) INHALATION PRN; +PROPOFOL 10 MG/ML 20 ML VIAL IV ONE; -fentaNYL (PF) 50 MCG/ML 2 ML AMP IV PRN
[2019-10-10 06:27] VITALS: TEMP 97.8
--- NOTE | 2019-10-10 07:44 | CE ---
CARDIAC ELECTROPHYSIOLOGY REPORT CARDIOVERSION: INDICATION: Atrial flutter. PROCEDURE: After explaining the procedure to the patient as well as the risks and the complications, after obtaining sedated state and performing transesophageal echocardiogram, a synchronized biphasic cardioversion using 200 joules was performed with evangelical of normal sinus rhythm. There was no immediate complication. ROLDAN / JACI: [id number] /
[2019-10-10 07:48] VITALS: RESP 18
--- NOTE | 2019-10-10 07:56 | ECHOT ---
TRANSESOPHAGEAL ECHOCARDIOGRAM INDICATION: Evaluation left atrial appendage. PROCEDURE: After explaining the procedure to the patient, its risks and the complications, blood pressure, heart rate, O2 saturation was monitored. The throat was sprayed with Cetacaine. He received sedation per anesthesia department. The probe was introduced in the esophagus without difficulty. Images were obtained. Following that, the probe was removed. There was no immediate complication. FINDINGS: Left atrial size upper size of normal. Left atrial appendage is normal. Left ventricular size is normal. There is evidence of mild global hypokinesis, estimated ejection fraction 45%. The aortic valve, mitral valve, tricuspid valve are normal. Descending thoracic aorta appears to be normal. Contrast bubble study revealed no shunting across the interatrial septum. No pericardial effusion was noted. Doppler pulse wave and color Doppler obtained revealed moderate mitral with mild tricuspid regurgitation. There was no shunting by color Doppler study. CONCLUSION: 1. Normal appearance left atrial appendage. 2. Normal left ventricular size with mild global hypokinesis. 3. Moderate mitral with mild tricuspid regurgitation. 4. No shunting across the interatrial septum. 5. Normal appearance of the descending thoracic aorta. MMODL / IJN: [id number] /
[2019-10-10 09:32] VITALS: BP 120/69; PULSE 62
== END | disposition home or self-care (01) ==
LOC: CATHCVL 06:03
PROVIDERS: ATTEND Internal Medicine Interventional Cardiology
DX: I48.3 Typical atrial flutter (principal); I08.1 Rheumatic disorders of both mitral and tricuspid valves; I49.5 Sick sinus syndrome; I10 Essential (primary) hypertension; I48.19 Other persistent atrial fibrillation; E78.2 Mixed hyperlipidemia; J44.9 Chronic obstructive pulmonary disease, unspecified; F10.10 Alcohol abuse, uncomplicated; G47.33 Obstructive sleep apnea (adult) (pediatric); Z79.01 Long term (current) use of anticoagulants; Z79.899 Other long term (current) drug therapy; Z72.0 Tobacco use; Z82.49 Family history of ischemic heart disease and other diseases of the circulatory system
CPT/HCPCS: 93312; 93320; 93325; 92960; J2001; J2704

== ENCOUNTER → 2020-03-19 | Outpatient (CLI) | payer BC ==
--- NOTE | 2020-03-19 12:43 | CONS ---
CONSULTATION DATE OF SERVICE: 03/19/2020. A 55-year-old gentleman who has been evaluated in the [facility] for possible obstructive sleep apnea-hypopnea syndrome. HISTORY OF PRESENT ILLNESS/SLEEP-WAKE EVALUATION: Patient usual sleep schedule is from 9:30 p.m. to 4:40 - 5:00 am on weekdays and from around 10:30-7:15 a.m. on weekends. Sometimes, he has problems with falling asleep, although no TV in bedrooms. He sleeps in different position with his . According to her, he snores. He wakes up from sleep, usually once with nocturia. He has history of grinding teeth during the sleep. During the day, Patient has episodes of anxiety and may take one nap. [place] Sleepiness Scale is 2. PAST MEDICAL HISTORY: Positive for atrial fibrillation with status post several cardiac ablations but still sometimes has episodes of atrial fibrillation, hypertension, hyperlipidemia. PAST SURGICAL HISTORY: Fatty tumor removed from the chest, right ankle multiple surgeries in the past after fracture, 2 cardiac ablations. MEDICATIONS: Eliquis 5 mg twice a day, metoprolol 50 mg 3 times a day, lisinopril 10 mg once a day, atorvastatin 40 mg once a day, Flecainide 50 mg once a day. SOCIAL HISTORY: Positive for smoking for about 25 pack years, quit about 10 years ago. Alcohol consumption occasional. FAMILY HISTORY: Heart problems, cancer. REVIEW OF SYSTEMS: Snoring, awakenings from sleep. PHYSICAL EXAM: gentleman without distress, BP 152/92, HR 60, RR 15, height 5 foot, 6-1/2 inches, weight 208 pounds, BMI 33.0, temperature 97.6, oxygen saturation at room air 98%. OROPHARYNX: Extremely low position of soft palate. Mallampati 4. Neck 16-1/4 inches in circumference. ABDOMEN: Obese. NECK: Supple, no JVD. Thyroid is not palpable. LUNGS: Clear to percussion and to auscultation. Good air exchange. No wheezing or rhonchi. HEART: S1, S2 regular. No murmurs, gallops, or rubs. EXTREMITIES: No clubbing or cyanosis. PONY ROUGHER: Awake, alert, and oriented X3. Cranial nerves 2 to 7 intact. There is no fasciculation or atrophy. noted. No focal deficits observed. IMPRESSION: 1. Snoring, extremely low position of soft palate, possible obstructive sleep apnea- hypopnea syndrome. 2. History of atrial fibrillation, status post several cardiac ablation procedures. 3. Hypertension. 4. Hyperlipidemia. 5. Status post fatty tumor removed from the chest. 6. Status post multiple ankle surgery for fracture in the past. PLAN: 1. Sleep study for evaluation of patient breathing during the sleep. 2. CPAP/BiPAP titration if sleep study confirms obstructive sleep apnea-hypopnea syndrome. 3. Preferable position during sleep on the side. 4. No driving if patient feels any sleepiness. 5. I will see patient for follow up visit to explain results of testing and following plan. Thank you very much for referring this patient for consultation. Sincerely, Max Dalton MD, PhD, FAASM Diplomat of [employer] [facility] [facility] [place] MMODL / IJN: [id number] /
== END | disposition home or self-care (01) ==
LOC: SLEEP 11:27
PROVIDERS: ATTEND Internal Medicine
DX: G47.33 Obstructive sleep apnea (adult) (pediatric) (principal); I10 Essential (primary) hypertension; E78.5 Hyperlipidemia, unspecified; Z98.890 Other specified postprocedural states; Z99.89 Dependence on other enabling machines and devices; Z86.79 Personal history of other diseases of the circulatory system; Z79.84 Long term (current) use of oral hypoglycemic drugs; Z79.899 Other long term (current) drug therapy
CPT/HCPCS: 99211

== ENCOUNTER → 2023-10-04 | Outpatient (CLI) | payer BC ==
--- NOTE | 2023-10-04 15:02 | MM ---
Reason for Exam: Clinical finding. Indicated Problems: Pain of the right side (Focal) for 6 Month(s). Patient History: 10/30/2013, Benign Excisional Biopsy on the left side. Mother had breast cancer, age 47. Prior Study Comparison: No prior studies available for comparison. Tissue Density: The breasts are almost entirely fatty. Findings: Analyzed By CAD. There is some mild increased linear stranding extending from the nipple to the outer right breast and subareolar region. This area correlates with the patient's location of pain. Additional evaluation with ultrasound is recommended. Left breast:No suspicious groups of microcalcifications, spiculated or lobular masses, architectural distortion or other secondary signs of malignancy are mammographically apparent. Overall Assessment: Incomplete: need additional imaging evaluation, BI-RAD 0 Management: Diagnostic Breast Ultrasound of the right breast. A negative mammogram report should not preclude additional follow up of suspicious palpable abnormalities. Patient should continue monthly self breast exam. A clinical breast exam by your physician is recommended on an annual basis and results should be correlated with mammographic findings. Note on Maile scores and lifetime risk: 1. A Maile score greater than 3% is considered moderate risk. If this is the case, consider specialist referral to assess eligibility for a risk reducing agent. 2. If overall lifetime risk for the development of breast cancer is 20% or higher, the patient may qualify for future screening with alternating mammogram and breast MRI. Electronically signed and approved by: Alfredito Thompson D.O. Radiologis
--- NOTE | 2023-10-04 15:23 | USB ---
Reason for Exam: Clinical finding. Patient History: 10/30/2013, Benign Excisional Biopsy on the left side. Mother had breast cancer, age 47. Technique: Method: Targeted. Findings: The upper section of the breast of the right breast, the medial section of the breast of the right breast and the retroareolar of the right breast were scanned. No solid or cystic masses are identified.. Overall Assessment: Negative, BI-RAD 1 Electronically signed and approved by: Alfredito Thompson D.O. Radiologis
== END | disposition home or self-care (01) ==
LOC: RADMAMWWP 14:00
PROVIDERS: ATTEND Family Medicine
DX: R92.313 Mammographic fatty tissue density, bilateral breasts (principal); N64.4 Mastodynia; Z80.3 Family history of malignant neoplasm of breast
CPT/HCPCS: 77062; 77066

== ENCOUNTER 2024-06-10 10:44 | Inpatient (IN) | payer BC ==
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
[2024-06-10] MEDS: SODIUM CHLORIDE 0.9% 1,000 ML IV STA ×2 (11:22→12:55)
[2024-06-10] MEDS: methylPREDNISolone SOD SUCCI 125 MG/2 ML VIAL IV STA (11:23)
[2024-06-10] MEDS: ONDANSETRON 4 MG/2 ML VIAL IVP STA (11:25)
[2024-06-10 11:33] LABS: Basophils % (A) 0 %; Eosinophils # (A) 0.1 k/uL (0-0.7); Eosinophils % (A) 0 %; HCT 37.3 % (39.0-53.0); HGB 12.7 gm/dL (13.0-17.5); Lymphocytes # (A) 0.9 k/uL (1.0-4.8); Lymphocytes % (A) 8 %; MCH 27.8 pg (25.0-35.0); MCHC 34.2 g/dL (31.0-37.0); MCV 81.4 fL (80.0-100.0); Mean Platelet Volume 9.4; Monocytes # (A) 0.4 k/uL (0-1.0); Monocytes % (A) 3 %; Neutrophils # (A) 9.7 k/uL (1.3-7.7); Neutrophils % (A) 87 %; Platelet Count 149 k/uL (150-450); RBC 4.58 m/uL (4.30-5.90); RDW 15.2 % (11.5-15.5); WBC 11.2 k/uL (3.8-10.6)
--- NOTE | 2024-06-10 11:50 | XR ---
EXAMINATION TYPE: XR chest 2V DATE OF EXAM: 06/10/2024 11:37 AM COMPARISON: 10/15/2018 CLINICAL INDICATION: Male, 59 years old with history of difficulty breathing, cough TECHNIQUE: XR chest 2V view(s) obtained. FINDINGS: The heart size is normal. The pulmonary vasculature is normal. Scattered mild increased lung markings are present slightly greater in the periphery right upper lung field and at the left base. Correlate for atypical pneumonia.. IMPRESSION: 1. Mild scattered increased lung markings. Correlate for atypical pneumonia. [facility], , 06/10/2024 11:47 AM
[2024-06-10 11:52] LABS: Partial Thromboplastin Time 27.9 sec (22.0-30.0); Prothrombin Time 11.4 sec (10.0-12.5)
[2024-06-10 11:55] LABS: ALT 15 U/L (4-49); AST 25 U/L (17-59); African American GFR (CKD) >90 (>60 ml/min/1.73 sqM); Albumin 4.1 g/dL (3.5-5.0); Alkaline Phosphatase 80 U/L (38-126); Anion Gap 10 mmol/L; Blood Urea Nitrogen 14 mg/dL (9-20); Calcium 8.8 mg/dL (8.4-10.2); Carbon Dioxide 26 mmol/L (22-30); Chloride 96 mmol/L (98-107); Glucose 116 mg/dL (74-99); Non-African American GFR(CKD) >90 (>60 ml/min/1.73 sqM); Potassium 4.1 mmol/L (3.5-5.1); Sodium 132 mmol/L (137-145); Total Bilirubin 0.8 mg/dL (0.2-1.3); Total Protein 7.1 g/dL (6.3-8.2)
[2024-06-10 12:07] LABS: Influenza A Detected (Not Detectd); Influenza B Not Detected (Not Detectd); RSV Not Detected (Not Detectd)
[2024-06-10] MEDS: ACETAMINOPHEN TAB 500 MG TAB PO STA (12:12)
[2024-06-10] MEDS: IBUPROFEN 800 MG TAB PO STA (12:12)
[2024-06-10] MEDS: IPRATROPIUM-ALBUTEROL 3 ML NEB INHALATION STA (12:17)
[2024-06-10] MEDS: AZITHROMYCIN 500 MG TAB PO STA (12:36)
[2024-06-10] MEDS ORDERED: ACETAMINOPHEN TAB 325 MG TAB PO PRN (13:34)
[2024-06-10] MEDS ORDERED: IBUPROFEN 400 MG TAB PO PRN (13:34)
[2024-06-10] MEDS ORDERED: NALOXONE 0.4 MG/ML 1 ML VIAL IV PRN (13:34)
[2024-06-10] MEDS ORDERED: ONDANSETRON 4 MG/2 ML VIAL IVP PRN (13:34)
[2024-06-10] MEDS: SODIUM CHLORIDE 0.9% 1,000 ML IV SCH (14:01)
[2024-06-10] MEDS: IPRATROPIUM-ALBUTEROL 3 ML NEB INHALATION SCH ×2 (15:11→19:52)
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
[2024-06-10] MEDS: methylPREDNISolone SOD SUCCI 125 MG/2 ML VIAL IV SCH (17:33)
[2024-06-10] MEDS: OSELTAMIVIR 75 MG CAP PO SCH (18:10)
[2024-06-10] MEDS: SYMBICORT 160-4.5 MCG INHALER INHALATION SCH (19:28)
[2024-06-10] MEDS ORDERED: IPRATROPIUM-ALBUTEROL 3 ML NEB INHALATION PRN (19:30)
[2024-06-10] MEDS: APIXABAN 5 MG TAB PO SCH (21:05)
[2024-06-10] MEDS: FLECAINIDE 50 MG TAB PO SCH (21:05)
[2024-06-10] MEDS: METOPROLOL TARTRATE 50 MG TAB PO SCH (21:06)
[2024-06-11] MEDS ORDERED: traZODone HCL 100 MG TAB PO PRN (08:22)
[2024-06-11] MEDS: allopurinoL 100 MG TAB PO SCH (09:25)
[2024-06-11] MEDS: lisinopriL 10 MG TAB PO SCH (09:25)
--- NOTE | 2024-06-11 14:12 | P.PN ---
Subjective Progress Note Date: 06/11/24 59-year-old male, history of COPD, paroxysmal atrial fibrillation, hypertension hyperlipidemia and osteoarthritis. Presented to the emergency department with fever, cough, greenish sputum, shortness of breath, fatigue, nausea, and emesis. Patient has been taking DayQuil and NyQuil with minimal relief. No chest pain. Patient has been feeling sick for the past 7 days. White cell count of 1.2, hemoglobin is 12.7 and platelet count of 149. Sodium is at 132, potassium is 4.1, BUN is 14 with a creatinine of 0.9. Troponins are negative. Liver function tests are normal. Viral screen was positive for influenza A. Initial lactic acid level was at 2.1 dropped down to 1.0. His EKG is showing normal sinus rhythm and the chest x-ray showed scattered increased markings in the left base and right upper lobe. Based on that, the patient was hospitalized, given a dose of IV Solu-Medrol in the emergency. Given a dose of Rocephin and Zithromax. Given a total of 3 L of IV fluids. He is currently running a low- grade temperature 100.8. He is on 2 L of oxygen by nasal cannula with a pulse ox of 98%. Pulse ox on room air was in the order of 95 to 100%. The patient is seen today June 11, 2024 in follow-up on the regular medical floor. He is currently sitting up in bed. Awake and alert in no acute distress. He is still dyspneic with conversation. Dyspneic with minimal exertion. Some cough and congestion. He is maintaining good O2 saturations in the 90s on room air. He is continued on Tamiflu. His procalcitonin was negative at 0.19. He remains on DuoNeb inhalations, Symbicort, Solu-Medrol. Anticoagulated with Eliquis. Objective - Vital Signs Vital signs: Vital Signs Temp 97.7 F 06/11/24 07:45 Pulse 70 06/11/24 13:38 Resp 18 06/11/24 13:38 BP 140/81 06/11/24 07:45 Pulse Ox 92 L 06/11/24 07:45 FiO2 Intake & Output 06/10/24 06/11/24 06/11/24 18:59 06:59 18:59 Weight 90.718 kg Other: # Voids 1 3 - Exam GENERAL EXAM: Alert, active, 59-year-old male, on room air, fairly comfortable in no apparent distress. HEAD: Normocephalic. EYES: Normal reaction of pupils, equal size. NOSE: Clear with pink turbinates. THROAT: No erythema or exudates. NECK: No masses, no JVD. CHEST: No chest wall deformity. LUNGS: Equal air entry with bilateral wheezing, scattered rhonchi. CVS: S1 and S2 normal with no audible murmur, regular rhythm. ABDOMEN: No hepatosplenomegaly, normal bowel sounds, no guarding or rigidity. SPINE: No scoliosis or deformity SKIN: No rashes CENTRAL NERVOUS SYSTEM: No focal deficits, tone is normal in all 4 extremities. EXTREMITIES: There is no peripheral edema. No clubbing, no cyanosis. Peripheral pulses are intact. - Labs CBC & Chem 7: 06/10/24 11:00 06/10/24 11:00 Assessment and Plan Assessment: Acute influenza A infection with flu symptoms. The patient is febrile and is suffering from acute respiratory illness. Procalcitonin negative Acute exacerbation of chronic obstructive pulmonary disease secondary to above Former smoker History of atrial fibrillation post ablation. Current rhythm is sinus. Ant icoagulated with Eliquis Hypertension Hyperlipidemia Plan: The patient was seen and evaluated Labs and medications reviewed Still bronchospastic and wheezing Continue bronchodilators, steroids Continue Tamiflu Anticoagulated with Eliquis We will continue to follow I have personally seen and examined the patient, performed the documentation and the assessment and plan as written. Number of minutes spent on the visit: 10 Dictation was produced using [employer] dictation software. Please excuse any grammatical, word or spelling errors.
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
[2024-06-11] MEDS: ATORVASTATIN 40 MG TAB PO SCH (20:46)
[2024-06-12 09:46] VITALS: BP 159/79; RESP 18; TEMP 97.5
[2024-06-12 12:16] VITALS: PULSE 70
[2024-06-12 13:06] LABS: African American GFR (CKD) >90 (>60 ml/min/1.73 sqM); Anion Gap 8 mmol/L; Blood Urea Nitrogen 17 mg/dL (9-20); Calcium 8.2 mg/dL (8.4-10.2); Carbon Dioxide 27 mmol/L (22-30); Chloride 102 mmol/L (98-107); Glucose 121 mg/dL (74-99); Non-African American GFR(CKD) >90 (>60 ml/min/1.73 sqM); Sodium 137 mmol/L (137-145)
--- NOTE | 2024-06-12 13:53 | P.PN ---
Subjective Progress Note Date: 06/12/24 59-year-old male, history of COPD, paroxysmal atrial fibrillation, hypertension hyperlipidemia and osteoarthritis. Presented to the emergency department with fever, cough, greenish sputum, shortness of breath, fatigue, nausea, and emesis. Patient has been taking DayQuil and NyQuil with minimal relief. No chest pain. Patient has been feeling sick for the past 7 days. White cell count of 1.2, hemoglobin is 12.7 and platelet count of 149. Sodium is at 132, potassium is 4.1, BUN is 14 with a creatinine of 0.9. Troponins are negative. Liver function tests are normal. Viral screen was positive for influenza A. Initial lactic acid level was at 2.1 dropped down to 1.0. His EKG is showing normal sinus rhythm and the chest x-ray showed scattered increased markings in the left base and right upper lobe. Based on that, the patient was hospitalized, given a dose of IV Solu-Medrol in the emergency. Given a dose of Rocephin and Zithromax. Given a total of 3 L of IV fluids. He is currently running a low- grade temperature 100.8. He is on 2 L of oxygen by nasal cannula with a pulse ox of 98%. Pulse ox on room air was in the order of 95 to 100%. The patient is seen today June 11, 2024 in follow-up on the regular medical floor. He is currently sitting up in bed. Awake and alert in no acute distress. He is still dyspneic with conversation. Dyspneic with minimal exertion. Some cough and congestion. He is maintaining good O2 saturations in the 90s on room air. He is continued on Tamiflu. His procalcitonin was negative at 0.19. He remains on DuoNeb inhalations, Symbicort, Solu-Medrol. Anticoagulated with Eliquis. The patient is seen today June 12, 2024 in follow-up on the regular medical floor. He is currently sitting up in bed. Awake and alert in no acute dis tress. Maintaining O2 saturations in the 90s on room air. He has been afebrile. Hemodynamically stable. Blood culture reveals no growth. Sodium 137. Potassium 4.0. Bicarb 27. BUN 17. Creatinine 0.68. Glucose 121. He remains on DuoNeb inhalations, Symbicort, Solu-Medrol. Remains on Tamiflu. Anticoagulated with Eliquis. Objective - Vital Signs Vital signs: Vital Signs Temp 97.5 F L 06/12/24 08:04 Pulse 70 06/12/24 12:16 Resp 18 06/12/24 08:04 BP 159/79 06/12/24 08:04 Pulse Ox 92 L 06/12/24 08:04 FiO2 Intake & Output 06/11/24 06/12/24 06/12/24 18:59 06:59 18:59 Other: # Voids 4 3 3 # Bowel Movements 1 - Exam GENERAL EXAM: Alert, pleasant 59-year-old male, sitting up in bed, on room air, comfortable in no apparent distress. HEAD: Normocephalic. EYES: Normal reaction of pupils, equal size. NOSE: Clear with pink turbinates. THROAT: No erythema or exudates. NECK: No masses, no JVD. CHEST: No chest wall deformity. LUNGS: Equal air entry with bilateral wheezing, scattered rhonchi. CVS: S1 and S2 normal with no audible murmur, regular rhythm. ABDOMEN: No hepatosplenomegaly, normal bowel sounds, no guarding or rigidity. SPINE: No scoliosis or deformity SKIN: No rashes CENTRAL NERVOUS SYSTEM: No focal deficits, tone is normal in all 4 extremities. EXTREMITIES: There is no peripheral edema. No clubbing, no cyanosis. Periph eral pulses are intact. - Labs CBC & Chem 7: 06/10/24 11:00 06/12/24 12:21 Labs: Abnormal Lab Results - Last 24 Hours (Table) 06/12/24 Range/Units 12:21 Glucose 121 H (74-99) mg/dL Calcium 8.2 L (8.4-10.2) mg/dL Microbiology - Last 24 Hours (Table) 06/10/24 12:28 Blood Culture - Preliminary Blood Assessment and Plan Assessment: Acute influenza A infection with flu symptoms. Procalcitonin negative Acute exacerbation of chronic obstructive pulmonary disease secondary to above Former smoker History of atrial fibrillation post ablation. Current rhythm is sinus. Anticoagulated with Eliquis Hypertension Hyperlipidemia Plan: The patient was seen and evaluated Labs and medications reviewed Still not back to baseline Continue bronchodilators, steroids Continue Tamiflu Anticoagulated with Eliquis Probable discharge in the a.m. I have personally seen and examined the patient, performed the documentation and the assessment and plan as written. Number of minutes spent on the visit: 10 Dictation was produced using [employer] dictation software. Please excuse any grammatical, word or spelling errors.
== END 2024-06-12 15:42 | disposition home or self-care (01) | DRG 194 ==
LOC: EC 10:44 → 4SSUR 14:55
PROVIDERS: ADMIT Internal Medicine; ATTEND Internal Medicine
DX: J10.1 Influenza due to other identified influenza virus with other respiratory manifestations (principal); J44.1 Chronic obstructive pulmonary disease with (acute) exacerbation; I10 Essential (primary) hypertension; I48.0 Paroxysmal atrial fibrillation; E78.5 Hyperlipidemia, unspecified; M10.9 Gout, unspecified; G47.00 Insomnia, unspecified; Z79.01 Long term (current) use of anticoagulants; Z79.899 Other long term (current) drug therapy; Z87.891 Personal history of nicotine dependence
CPT/HCPCS: 36415; 71046; 80048; 80053; 83605; 84145; 84484; 85025; 85610; 85730; 87040; 87636; 93005; 94640; 96361; 96365; 96375; 99285

== ENCOUNTER → 2024-06-14 | Outpatient (CLI) | payer BC ==
[2024-06-14 15:17] LABS: Basophils # (A) 0.06 X 10*3/uL (0.00-0.10); Basophils % (A) 0.4 %; Eosinophils # (A) 0 X 10*3/uL (0.04-0.35); Eosinophils % (A) 0 %; HCT 35.1 % (39.6-50.0); HGB 11.7 g/dL (13.0-17.0); Lymphocytes # (A) 0.96 X 10*3/uL (0.90-5.00); Lymphocytes % (A) 6.9 %; MCH 27.2 pg (27.0-32.0); MCHC 33.3 g/dL (32.0-37.0); MCV 81.6 FL (80.0-97.0); Mean Platelet Volume 10.9 FL (9.5-12.2); Monocytes # (A) 0.99 X 10*3/uL (0.20-1.00); Monocytes % (A) 7.1 %; NRBC Per 100 WBC 0.03 X 10*3/uL (0.00-0.01); Neutrophils # (A) 11.41 X 10*3/uL (1.80-7.70); Neutrophils % (A) 81.7 %; Platelet Count 251 X 10*3/uL (140-440); WBC 13.96 X 10*3/uL (4.50-10.00)
== END | disposition home or self-care (01) ==
LOC: LABWHC1 12:09
PROVIDERS: ATTEND Nurse Practitioner Family
DX: J44.9 Chronic obstructive pulmonary disease, unspecified (principal)
CPT/HCPCS: 36415; 85025